=== PATIENT | female | born 1965 | race Caucasian/White ===

== ENCOUNTER 2019-12-03 08:04 | Outpatient (REF) | payer OTHER, SELFPAY ==
[2019-12-03 10:29] LABS: TSH reflex Free T4 4.83 mIU/mL (0.32-4.0); Vitamin D 25-OH Total 28.8 ng/mL (>30)
[2019-12-03 10:44] LABS: Alanine Aminotransferase 16 U/L (0-31); Albumin Level 4.2 g/dL (3.5-5.0); Alkaline Phosphatase 91 U/L (39-117); Anion Gap 12 (12-20); Aspartate Amino Transferase 17 U/L (5-31); Bilirubin Total < 0.2 mg/dL (0.0-1.0); Blood Urea Nitrogen 16 mg/dL (9-16); Calcium 8.8 mg/dL (8.4-10.2); Carbon Dioxide 26 mmol/L (22-29); Chloride 104 mmol/L (96-108); Cholesterol 276 mg/dL; Estimated Glomerular Filt Rate > 60; Glucose Random 106 mg/dL (60-115); HDL Cholesterol 48 mg/dL; LDL Cholesterol Calculated 206 mg/dl; Potassium 4.6 mmol/l (3.3-5.1); Sodium 137 mmol/L (135-145); Total Protein 7.7 g/dL (6.5-8.0); Triglycerides 113 mg/dL
[2019-12-03 10:52] LABS: Creatinine Urine 55.33 mg/dL
[2019-12-03 11:26] LABS: Free T4 (Free Thyroxine) 1.11 ng/dL (0.71-1.85)
== END 2019-12-03 08:05 | disposition home or self-care (01) ==
LOC: HO.LAB 08:04
PROVIDERS: PCP Internal Medicine; Visit Provider Internal Medicine
DX: E11.69 Type 2 diabetes mellitus with other specified complication (principal); E78.00 Pure hypercholesterolemia, unspecified; E55.9 Vitamin D deficiency, unspecified; E03.9 Hypothyroidism, unspecified
CPT/HCPCS: 80053; 80061; 82043; 82306; 84439; 84443

== ENCOUNTER 2019-12-15 07:39 | Outpatient (REF) | payer OTHER, SELFPAY ==
--- NOTE | 2019-12-15 08:00 | XR_ITS ---
EXAMINATION: XR RIBS, RIGHT CLINICAL INFORMATION: Pleurodynia. COMPARISON: None TECHNIQUE: 3 views of the right ribs were obtained. FINDINGS: Left convex thoracic scoliosis is noted. No displaced rib fractures are seen. No acute osseous abnormality is demonstrated. XR/XR ribs RT 2V IMPRESSION: No displaced rib fractures are seen. No focal findings.
[2019-12-15 08:37] LABS: Alanine Aminotransferase 16 U/L (0-31); Albumin Level 4.2 g/dL (3.5-5.0); Alkaline Phosphatase 94 U/L (39-117); Anion Gap 13 (12-20); Aspartate Amino Transferase 19 U/L (5-31); Bilirubin Total 0.6 mg/dL (0.0-1.0); Blood Urea Nitrogen 17 mg/dL (9-16); Calcium 8.7 mg/dL (8.4-10.2); Carbon Dioxide 27 mmol/L (22-29); Chloride 102 mmol/L (96-108); Cholesterol 197 mg/dL; Estimated Glomerular Filt Rate > 60; Glucose Fasting 120 mg/dL (60-99); HDL Cholesterol 45 mg/dL; LDL Cholesterol Calculated 130 mg/dl; Potassium 4.6 mmol/l (3.3-5.1); Sodium 137 mmol/L (135-145); Total Protein 7.5 g/dL (6.5-8.0); Triglycerides 111 mg/dL
[2019-12-15 08:58] LABS: TSH reflex Free T4 7.03 mIU/mL (0.32-4.0)
== END 2019-12-15 07:40 | disposition home or self-care (01) ==
LOC: HO.LAB 07:39
PROVIDERS: Visit Provider Internal Medicine
DX: R07.81 Pleurodynia (principal); E03.9 Hypothyroidism, unspecified; E78.2 Mixed hyperlipidemia; E11.9 Type 2 diabetes mellitus without complications
CPT/HCPCS: 71100; 80053; 80061; 84439; 84443

== ENCOUNTER 2020-01-02 10:11 | Outpatient (REF) | payer OTHER, SELFPAY | END 2020-01-02 10:12 | disposition home or self-care (01) | LOC: HO.LAB 10:11 | PROVIDERS: PCP Internal Medicine; Visit Provider Internal Medicine | DX: Z20.828 Contact with and (suspected) exposure to other viral communicable diseases (principal) | CPT/HCPCS: C9803; U0003 ==

== ENCOUNTER 2020-01-14 09:36 | Outpatient (REF) | payer OTHER, SELFPAY | END 2020-01-14 09:37 | disposition home or self-care (01) | LOC: HO.LAB 09:36 | PROVIDERS: Visit Provider Internal Medicine | DX: Z20.828 Contact with and (suspected) exposure to other viral communicable diseases (principal) | CPT/HCPCS: C9803; U0003 ==

== ENCOUNTER 2020-07-22 14:49 | Outpatient (REF) | payer OTHER, SELFPAY ==
[2020-07-22 17:56] LABS: Alanine Aminotransferase 17 U/L (0-31); Albumin Level 4.2 g/dL (3.5-5.0); Alkaline Phosphatase 87 U/L (39-117); Anion Gap 12 (12-20); Aspartate Amino Transferase 20 U/L (5-31); Bilirubin Total 0.5 mg/dL (0.0-1.0); Blood Urea Nitrogen 13 mg/dL (9-16); Calcium 9.5 mg/dL (8.4-10.2); Carbon Dioxide 27 mmol/L (22-29); Chloride 104 mmol/L (96-108); Cholesterol 264 mg/dL; Estimated Glomerular Filt Rate > 60; Glucose Random 68 mg/dL (60-115); HDL Cholesterol 47 mg/dL; LDL Cholesterol Calculated 185 mg/dl; Potassium 4.3 mmol/L (3.3-5.1); Sodium 139 mmol/L (135-145); Total Protein 7.7 g/dL (6.5-8.0); Triglycerides 161 mg/dL
[2020-07-22 18:08] LABS: Creatinine Urine 44.38 mg/dL; Microalbum/Creatinine Ratio Ur 13.5 ug/mg cr
[2020-07-22 18:17] LABS: Free T4 (Free Thyroxine) 1.25 ng/dL (0.71-1.85); Thyroid Stimulating Hormone 3.61 uIU/mL (0.32-4.0); Vitamin D 25-OH Total 23.8 ng/mL (>30)
[2020-07-22 18:22] LABS: Vitamin B12 458 pg/mL (200-900)
[2020-07-23 18:07] LABS: LDL Cholesterol Direct 202 mg/dL (<100)
== END 2020-07-22 14:50 | disposition home or self-care (01) ==
LOC: HO.LAB 14:49
PROVIDERS: PCP Internal Medicine; Visit Provider Internal Medicine Endocrinology, Diabetes & Metabolism
DX: E11.40 Type 2 diabetes mellitus with diabetic neuropathy, unspecified (principal); Z79.84 Long term (current) use of oral hypoglycemic drugs; E03.9 Hypothyroidism, unspecified; E78.2 Mixed hyperlipidemia
CPT/HCPCS: 36415; 80053; 80061; 82043; 82306; 82607; 82947; 83721; 84439; 84443; 99212

== ENCOUNTER 2020-08-01 13:03 | Outpatient (REF) | payer OTHER, SELFPAY ==
[2020-08-01 15:22] LABS: Alanine Aminotransferase 19 U/L (0-31); Albumin Level 4.3 g/dL (3.5-5.0); Alkaline Phosphatase 102 U/L (39-117); Anion Gap 15 (12-20); Aspartate Amino Transferase 21 U/L (5-31); Bilirubin Total 0.3 mg/dL (0.0-1.0); Blood Urea Nitrogen 18 mg/dL (9-16); Calcium 9.5 mg/dL (8.4-10.2); Carbon Dioxide 26 mmol/L (22-29); Chloride 102 mmol/L (96-108); Cholesterol 150 mg/dL; Estimated Glomerular Filt Rate > 60; Glucose Fasting 169 mg/dL (60-99); HDL Cholesterol 44 mg/dL; LDL Cholesterol Calculated 86 mg/dl; Potassium 4.1 mmol/L (3.3-5.1); Sodium 139 mmol/L (135-145); Total Protein 7.9 g/dL (6.5-8.0); Triglycerides 104 mg/dL
[2020-08-01 15:43] LABS: Thyroid Stimulating Hormone 1.51 uIU/mL (0.32-4.0)
[2020-08-01 17:32] LABS: Creatinine Urine 58.98 mg/dL; Microalbum/Creatinine Ratio Ur 8.4 ug/mg cr
[2020-08-04 18:51] LABS: TS Negative Control Passed; TS Panel A 0; TS Panel B 0; TS Positive Control Passed; TSpotTB Negative (SeeBelow)
[2020-08-05 20:37] LABS: Vitamin D 25-OH, D2 <4 ng/mL; Vitamin D 25-OH, D3 26 ng/mL; Vitamin D 25-OH, Total 26 ng/mL (30-100)
== END 2020-08-01 13:04 | disposition home or self-care (01) ==
LOC: HO.LAB 13:03
PROVIDERS: PCP Internal Medicine; Visit Provider Internal Medicine
DX: Z01.84 Encounter for antibody response examination (principal); Z11.1 Encounter for screening for respiratory tuberculosis; E55.9 Vitamin D deficiency, unspecified; E03.9 Hypothyroidism, unspecified; E11.9 Type 2 diabetes mellitus without complications; E78.5 Hyperlipidemia, unspecified
CPT/HCPCS: 36415; 80053; 80061; 82043; 82306; 84443; 86481

== ENCOUNTER 2020-09-03 10:50 | Outpatient (REF) | payer OTHER, SELFPAY ==
--- NOTE | ~2020-09-03 | MM_ITS ---
EXAMINATION: MM SCREENING DIGITAL BREAST TOMOSYNTHESIS, BILATERAL CLINICAL INFORMATION: Screening. Asymptomatic. The lifetime risk of breast cancer based on the Tyrer-Cuzick Model is 7%. COMPARISON: Mammography: 04/23/2019, 04/17/2018, 04/11/2017 TECHNIQUE: Digital breast tomosynthesis is performed in both the craniocaudal and mediolateral oblique views along with computer-aided detection (CAD). Synthesized 2D images are generated from the tomosynthesis. FINDINGS: There are scattered areas of fibroglandular density (ACR BI-RADS breast composition Category b). There are no significant masses, abnormal calcifications, or other abnormalities. Parenchymal pattern is similar to prior exams. No developing density. There is biopsy clip marker again seen posterior lower inner right breast. There are benign bilateral benign bilateral round calcifications again seen. MM/MM tomosynthesis screening BI IMPRESSION: No mammographic evidence of malignancy. ASSESSMENT: BI-RADS 2: Benign RECOMMENDATION: Routine annual mammography screening. This patient's information was entered into a reminder system with a target due date for their next mammogram.
== END 2020-09-03 10:51 | disposition home or self-care (01) ==
LOC: HO.MAMMO 10:50
PROVIDERS: PCP Internal Medicine; Visit Provider Internal Medicine
DX: Z12.31 Encounter for screening mammogram for malignant neoplasm of breast (principal)
CPT/HCPCS: 77063; 77067

== ENCOUNTER 2021-01-24 07:54 | Outpatient (REF) | payer OTHER, SELFPAY ==
[2021-01-24 08:07] LABS: MANUAL DIFF FLAG NO
[2021-01-24 09:08] LABS: Basophils Percent Auto 0.2 % (0-2); Eosinophils Absolute Auto 0.1 X10*3/uL (0.0-0.4); Eosinophils Percent Auto 1.1 % (0-4); Hematocrit 39.8 % (37.0-47.0); Hemoglobin 12.6 g/dl (12.0-16.0); Imm Gran Abs Auto 0.02 X10*3/uL (0.00-0.03); Imm Gran Pct Auto 0.2 % (0.0-0.4); Lymphocytes Absolute Auto 3.7 X10*3/uL (1.2-4.9); Lymphocytes Percent Auto 38.4 % (20-40); Mean Corpuscular HGB Conc 31.7 g/dl (31.0-35.0); Mean Corpuscular Hemoglobin 27.5 pg (27.0-33.0); Mean Corpuscular Volume 86.9 fL (80.0-98.0); Mean Platelet Volume 11.4 fL (9.4-12.3); Monocytes Absolute Auto 0.6 X10*3/uL (0.1-1.2); Monocytes Percent Auto 6.5 % (2-11); Neutrophils Absolute Auto 5.1 x10*3/uL (2.0-8.3); Neutrophils Percent Auto 53.6 % (45-73); Platelet Count 346 X10*3/uL (160-400); Red Blood Count 4.58 X10*6/uL (4.20-5.50); Red Cell Distribution Width 12.7 % (11.0-16.0); White Blood Count 9.6 X10*3/uL (4.8-10.8)
[2021-01-24 09:33] LABS: Alanine Aminotransferase 15 U/L (0-31); Alkaline Phosphatase 93 U/L (39-117); Anion Gap 12 (12-20); Aspartate Amino Transferase 16 U/L (5-31); Bilirubin Total 0.2 mg/dL (0.0-1.0); Blood Urea Nitrogen 11 mg/dL (9-16); Calcium 9.3 mg/dL (8.4-10.2); Carbon Dioxide 26 mmol/L (22-29); Chloride 106 mmol/L (96-108); Estimated Glomerular Filt Rate > 60; Glucose Fasting 101 mg/dL (60-99); Potassium 4.8 mmol/L (3.3-5.1); Sodium 139 mmol/L (135-145); Total Protein 7.6 g/dL (6.5-8.0)
[2021-01-24 09:41] LABS: Creatinine Urine 237.47 mg/dL; Microalbum/Creatinine Ratio Ur 15.1 ug/mg cr
[2021-01-24 09:55] LABS: TSH reflex Free T4 1.95 uIU/mL (0.32-4.0)
== END 2021-01-24 07:55 | disposition home or self-care (01) ==
LOC: HO.LAB 07:54
PROVIDERS: PCP Internal Medicine; Visit Provider Nurse Practitioner Family
DX: E11.9 Type 2 diabetes mellitus without complications (principal); E03.9 Hypothyroidism, unspecified
CPT/HCPCS: 36415; 80053; 82043; 84443; 85025

== ENCOUNTER 2021-06-06 07:16 | Outpatient (REF) | payer OTHER, SELFPAY ==
[2021-06-06 08:33] LABS: Creatinine Urine 140.08 mg/dL; Microalbum/Creatinine Ratio Ur 5.7 ug/mg cr
[2021-06-06 08:37] LABS: Alanine Aminotransferase 22 U/L (0-31); Albumin Level 4.1 g/dL (3.5-5.0); Alkaline Phosphatase 95 U/L (39-117); Anion Gap 11 (12-20); Aspartate Amino Transferase 19 U/L (5-31); Bilirubin Total 0.5 mg/dL (0.0-1.0); Blood Urea Nitrogen 12 mg/dL (9-16); Calcium 9.3 mg/dL (8.4-10.2); Carbon Dioxide 29 mmol/L (22-29); Chloride 103 mmol/L (96-108); Cholesterol 278 mg/dL; Estimated Glomerular Filt Rate > 60; Glucose Fasting 114 mg/dL (60-99); HDL Cholesterol 41 mg/dL; LDL Cholesterol Calculated 206 mg/dl; Potassium 4.7 mmol/L (3.3-5.1); Sodium 138 mmol/L (135-145); Total Protein 7.7 g/dL (6.5-8.0); Triglycerides 156 mg/dL
[2021-06-06 08:58] LABS: Thyroid Stimulating Hormone 1.56 uIU/mL (0.32-4.0)
[2021-06-10 14:56] LABS: Vitamin D 25-OH, D2 <4 ng/mL; Vitamin D 25-OH, D3 22 ng/mL; Vitamin D 25-OH, Total 22 ng/mL (30-100)
== END 2021-06-06 07:17 | disposition home or self-care (01) ==
LOC: HO.LAB 07:16
PROVIDERS: PCP Internal Medicine; Visit Provider Internal Medicine
DX: E11.9 Type 2 diabetes mellitus without complications (principal); E78.5 Hyperlipidemia, unspecified; E55.9 Vitamin D deficiency, unspecified; E03.9 Hypothyroidism, unspecified
CPT/HCPCS: 36415; 80053; 80061; 82043; 82306; 84443

== ENCOUNTER 2021-09-07 12:12 | Outpatient (REF) | payer OTHER, SELFPAY ==
--- NOTE | ~2021-09-07 | MM_ITS ---
EXAMINATION: MM SCREENING DIGITAL BREAST TOMOSYNTHESIS, BILATERAL CLINICAL INFORMATION: Screening. Asymptomatic. The lifetime risk of breast cancer based on the Tyrer-Cuzick Model is 6%. COMPARISON: Mammography: 09/03/2020, 04/23/2019, 04/17/2018 TECHNIQUE: Digital breast tomosynthesis is performed in both the craniocaudal and mediolateral oblique views along with computer-aided detection (CAD). Synthesized 2D images are generated from the tomosynthesis. FINDINGS: There are scattered areas of fibroglandular density (ACR BI-RADS breast composition Category b). There are no significant masses, abnormal calcifications, or other abnormalities. Parenchymal pattern is similar to prior studies. No interval developing density or architectural abnormality. Scattered benign round and coarse and some dermal calcifications again seen. There is a biopsy clip marker again noted posterior lower inner right breast. MM/MM tomosynthesis screening BI IMPRESSION: No mammographic evidence of malignancy. ASSESSMENT: BI-RADS 2: Benign RECOMMENDATION: Routine annual mammography screening. This patient's information was entered into a reminder system with a target due date for their next mammogram.
== END 2021-09-07 12:13 | disposition home or self-care (01) ==
LOC: HO.MAMMO 12:12
PROVIDERS: PCP Internal Medicine; Visit Provider Internal Medicine
DX: Z12.31 Encounter for screening mammogram for malignant neoplasm of breast (principal)
CPT/HCPCS: 77063; 77067

== ENCOUNTER 2022-05-15 07:05 | Outpatient (REF) | payer OTHER, SELFPAY ==
[2022-05-15 07:17] LABS: MANUAL DIFF FLAG NO
[2022-05-15 08:22] LABS: Basophils Percent Auto 0.2 % (0-2); Eosinophils Absolute Auto 0.1 X10*3/uL (0.0-0.4); Eosinophils Percent Auto 0.6 % (0-4); Hematocrit 40.7 % (37.0-47.0); Imm Gran Abs Auto 0.04 X10*3/uL (0.00-0.03); Imm Gran Pct Auto 0.4 % (0.0-0.4); Lymphocytes Absolute Auto 3.5 X10*3/uL (1.2-4.9); Lymphocytes Percent Auto 33.2 % (20-40); Mean Corpuscular HGB Conc 31.9 g/dl (31.0-35.0); Mean Corpuscular Hemoglobin 27.1 pg (27.0-33.0); Mean Corpuscular Volume 84.8 fL (80.0-98.0); Mean Platelet Volume 10.9 fL (9.4-12.3); Monocytes Absolute Auto 0.7 X10*3/uL (0.1-1.2); Monocytes Percent Auto 6.5 % (2-11); Neutrophils Absolute Auto 6.2 x10*3/uL (2.0-8.3); Neutrophils Percent Auto 59.1 % (45-73); Platelet Count 359 X10*3/uL (160-400); White Blood Count 10.5 X10*3/uL (4.8-10.8)
[2022-05-15 08:50] LABS: Creatinine Urine 134.93 mg/dL; Microalbum/Creatinine Ratio Ur 14.8 ug/mg cr
[2022-05-15 09:05] LABS: Cholesterol 284 mg/dL; HDL Cholesterol 40 mg/dL; LDL Cholesterol Calculated 208 mg/dl; Triglycerides 180 mg/dL
[2022-05-15 09:24] LABS: Thyroid Stimulating Hormone 3.15 uIU/mL (0.32-4.0); Vitamin D 25-OH Total 17.2 ng/mL (>30)
== END 2022-05-15 07:06 | disposition home or self-care (01) ==
LOC: HO.LAB 07:05
PROVIDERS: PCP Internal Medicine; Visit Provider Internal Medicine
DX: E03.9 Hypothyroidism, unspecified (principal); E78.5 Hyperlipidemia, unspecified; E11.9 Type 2 diabetes mellitus without complications; E55.9 Vitamin D deficiency, unspecified; E66.01 Morbid (severe) obesity due to excess calories
CPT/HCPCS: 36415; 80061; 82043; 82306; 84443; 85025

== ENCOUNTER → 2022-06-09 11:23 | Outpatient (BNVA) | payer OTHER, SELFPAY | PROVIDERS: PCP Internal Medicine; Visit Provider Internal Medicine Endocrinology, Diabetes & Metabolism | DX: E11.9 Type 2 diabetes mellitus without complications (principal) | CPT/HCPCS: 82947; 83036; 99212 ==

== ENCOUNTER 2022-09-08 08:04 | Outpatient (AMB) | payer OTHER, SELFPAY ==
--- NOTE | 2022-09-08 08:37 | A.OFFVIS_ITS ---
Intake Vital Signs 09/08/22 08:38 Height 4 ft 11.06 in Weight 172 lb 13.478 oz BMI 34.8 BP 118/66 Blood Pressure Location Lt brachial Position Sitting Pulse 78 Intake Visit Reasons: chest pain Intake Note: NPV Primary Care Pediatrician Required: Yes Primary Care Pediatrician Language: Teachers' Aide Name: dimitri [id number] Accompanied by: Self / Same As Patient Allergies Seasonal Allergies Allergy (Mild, Verified 09/08/22 08:40) Itchy Eyes Medication List - Last Reconciled 09/08/22 by Sg Walsh MD atorvastatin 80 mg PO DAILY 90 days blood sugar diagnostic As directed blood sugar diagnostic (FreeStyle Lite Strips) As directed blood-glucose meter (FreeStyle Lite Meter kit) As directed cholecalciferol (vitamin D3) 50 mcg PO DAILY 90 days clotrimazole-betamethasone 1-0.05 % 1 appl topical BID 2 weeks colloidal oatmeal (Aveeno Soothing Bath packet) 1 packet topical DAILY 8 days lancets As directed lancets (FreeStyle Lancets) As directed levothyroxine 125 mcg PO DAILY 90 days omeprazole 20 mg PO DAILY sitagliptin phos-metformin 50-1,000 mg ER 1 tab PO BID 30 days HPI HPI Comments History of Present Illness Details This is a cardiology consultation regarding chest pain. She states that few weeks back, she had an episode of chest pain. Then it seems that she went to [facility]. At that time, no evidence of ACS and she was discharged home. 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 Difficult to say if it is truly exertion or something nonspecific. Asked numerous times but still not able to clarify. Per ER note, high sensitivity troponins as well as cardiac BNP where well within normal limits. After that, it seems that she probably had a stress test as well but we do not have any results. She has not had any further symptoms. History of diabetes hypertension. It seems she was started on lisinopril for blood pressure but not in her list any more. Also blood pressure seems to be rather in the normal range now. Otherwise, no known coronary disease or myocardial infarction. [facility] Medical History (Updated 06/17/22 @ 13:12 by Gladis Aguilar MD) Diabetes mellitus Essential hypertension Hypothyroidism Mixed hyperlipidemia Morbid obesity due to excess calories Rash Rash due to allergy Rib pain Surgical History S/P DUSTIN-BSO (total abdominal hysterectomy and bilateral salpingo-oophorectomy) Family History Father Cirrhosis History of ETOH abuse Mother Hypertension Family/Other Breast cancer Social History (Updated 09/08/22 @ 08:42 by Tory Martel) Housing: Apartment Alcohol intake: never Patient Tobacco Use Status: Never used Tobacco e-Cigarette/Vaping Use: Never Used Second Hand Smoke Exposure: No service: No Current occupational status: unemployed Cognitive needs: No Hearing needs: No Vision needs: No Review of Systems Const Denies chills, Denies daytime sleepiness, Denies fatigue, Denies fever(s), Denies frequent falls, Denies night sweats, Denies snoring, Denies weakness, Denies weight gain and Denies weight loss Eyes Denies loss of vision ENT Denies dizziness and Denies hearing loss Card Denies chest pain, Denies chest pain with activity, Denies syncope, Denies rapid heart rate, Denies edema, Denies claudication, Denies leg edema, Denies lightheadedness, Denies palpitations, Denies dyspnea, Denies dyspnea on exertion and Denies orthopnea Resp Denies cough, Denies excessive phlegm production, Denies dyspnea, Denies dyspnea on exertion, Denies snoring and Denies wheezing GI Denies abdominal pain, Denies hematochezia, Denies change in bowel habits, Denies change in stool character, Denies heartburn, Denies nausea and Denies vomiting Denies hematuria, Denies urinary frequency and Denies dysuria Musc Denies arthralgias, Denies muscle weakness, Denies numbness and Denies tingling Skin/Breast Denies nail changes and Denies rash Neuro Denies Abnormal speech present, Denies dizziness, Denies syncope, Denies frequent falls, Denies loss of vision, Denies memory loss, Denies numbness, Denies tingling and Denies weakness Psych Denies depression and Denies memory loss Endo Denies fatigue and Denies palpitations Aller/Immun Denies wheezing Physical Exam Vital Signs: Last Vital Signs Pulse 78 09/08/22 08:38 BP 118/66 09/08/22 08:38 BMI result Body Mass Index 34.8 Const General: comfortable and no acute distress Orientation/consciousness: patient oriented x3 HEENT Other: Unremarkable Head: Yes normal to inspection Neck Neck: Yes normal visual inspection Chest Chest palpation & inspection: normal inspection of the chest Resp Auscultation: clear to auscultation bilaterally Cardio Palpation: normal PMI Heart sounds: S1 normal heart sound present, S2 normal heart sound present, no gallops, no murmurs and no rubs GI Palpation (GI): Soft to palpation Back/Spine/Pelvis Other: unremarkable Skin General skin exam: no rashes or lesions noted Neuro General: patient oriented x3 Speech: No Abnormal speech present Extrem General: Yes normal to inspection Psych Mental Status: mental status grossly normal Office Procedures EKG Details: EKG with sinus rhythm at 78/Min; cannot exclude old anteroseptal infarct but could be from body habitus; [place] [id number], Complete Assessment & Plan Assessment & Plan (1) Chest pain: Code(s): R07.9 - Chest pain, unspecified Plan History of diabetes, possible hypertension, chest pain. Needs assessment for coronary disease. Will need to get the stress test result from [facility]. Will get echocardiogram. Further plan after review of these. Orders: Orders CA echo transthoracic complete Today I25.10 - Atherosclerotic heart disease of [place] coronary artery without angina pectoris, R07.9 - Chest pain, unspecified Coding Level of Care Code New Pt Level 3 (81121) Diagnoses Chest pain R07.9 CPT Codes EKG - CPT: 40813-[id number], Complete ([id number])
[2022-09-08 08:38] VITALS: BP 118/66; PULSE 78; BMI 34.8
== END 2022-09-08 09:49 | disposition home or self-care (01) ==
PROVIDERS: Visit Provider Internal Medicine
DX: R07.9 Chest pain, unspecified (principal)
CPT/HCPCS: 93010; 99203

== ENCOUNTER → 2022-09-08 08:04 | Outpatient (BNVA) | payer OTHER, SELFPAY | PROVIDERS: Visit Provider Internal Medicine | DX: R07.9 Chest pain, unspecified (principal) | CPT/HCPCS: 93005; 99202 ==

== ENCOUNTER 2022-09-09 10:52 | Outpatient (REF) | payer OTHER, SELFPAY ==
--- NOTE | ~2022-09-09 | MM_ITS ---
EXAMINATION: MM SCREENING DIGITAL BREAST TOMOSYNTHESIS, BILATERAL CLINICAL INFORMATION: Screening. Asymptomatic. The lifetime risk of breast cancer based on the Tyrer-Cuzick Model is 10.5%. COMPARISON: Mammography: This study is compared with prior exams dating back to 2019. TECHNIQUE: Digital breast tomosynthesis is performed in both the craniocaudal and mediolateral oblique views along with computer-aided detection (CAD). Synthesized 2D images are generated from the tomosynthesis. FINDINGS: There are scattered areas of fibroglandular density (ACR BI-RADS breast composition Category b). There are no significant masses, abnormal calcifications, or other abnormalities. There is a tissue marker present in the right breast from prior benign percutaneous biopsy. MM/MM tomosynthesis screening BI IMPRESSION: No mammographic evidence of malignancy. ASSESSMENT: BI-RADS BI-RADS 2 - Benign Findings RECOMMENDATION: Routine annual mammography screening. 1 year F/U This examination should not preclude the clinical evaluation of a suspicious palpable abnormality. This patient's information was entered into a reminder system with a target due date for their next mammogram.
== END 2022-09-09 10:53 | disposition home or self-care (01) ==
LOC: HO.MAMMO 10:52
PROVIDERS: PCP Internal Medicine; Visit Provider Internal Medicine
DX: Z12.31 Encounter for screening mammogram for malignant neoplasm of breast (principal)
CPT/HCPCS: 77063; 77067

== ENCOUNTER → 2022-09-09 11:00 | Outpatient (BNV) | payer OTHER, SELFPAY | PROVIDERS: PCP Internal Medicine; Visit Provider Radiology Diagnostic Radiology | DX: Z12.31 Encounter for screening mammogram for malignant neoplasm of breast (principal) | CPT/HCPCS: 77063; 77067 ==

== ENCOUNTER → 2022-10-12 14:36 | Outpatient (REF) | payer OTHER, SELFPAY ==
--- NOTE | 2022-10-12 14:39 | CA_ITS ---
Transthoracic Echocardiogram Patient (Last, First, Middle): Vicky Madison, Gender: Female Date of : 1965 Age: 57 Procedure Date: 10/12/2022 Procedure Type: Transthoracic Echocardiogram Location: OP Height: 149.86 cm Weight: 74.39 kg BSA: 1.69 m2 Heart Rate: bpm BP: 124 / 60 mmHg Bottom Hoop Driver: Referring MD: Sg Walsh MD Symptoms: I25.10 - Atherosclerotic heart disease of [place] coronary artery without... Study Quality: Fair ECG Rhythm: Sinus Conclusions: - The left ventricular systolic function is normal. The calculated ejection fraction is 65% by biplane method. - No obvious valvular pathology seen on this study. Findings Left Ventricle Normal left ventricular cavity size. There is mildly increased left ventricular wall thickness. The left ventricular systolic function is normal. The calculated ejection fraction is 65% by biplane method. There is no evidence of regional wall motion abnormalities. Diastolic function is normal for age. Right Ventricle Normal right ventricular cavity size and systolic function. Atria Both atria are normal in size. Aortic Valve There is a normal trileaflet aortic valve. There is no aortic valve stenosis. There is no aortic valve regurgitation. Mitral Valve The mitral valve appears normal. There is no mitral valve regurgitation. There is no mitral valve stenosis. Pulmonic Valve The pulmonic valve is likely normal. Tricuspid Valve There is trace tricuspid valve regurgitation. There is no evidence of pulmonary hypertension. Great Vessels The asc aorta is normal in size. Venous The inferior vena cava is normal in size and collapses greater than 50% with inspiration. Pericardium/Pleural There is no evidence of pericardial effusion. Prior Study Comparison No prior study available for comparison. Recommendations, Care & Conclusions No obvious valvular pathology seen on this study. Measurements 2D Linear Measurements IVSd: 1.24 0.6-0.9/0.6-1.0 cm LVIDd: 4.24 3.9-5.3/4.2-5.9 cm LVIDd Index: 2.51 2.4-3.2/2.2-3.1 cm/m2 LVIDs: 2.77 2.0-3.6 cm LVPWd: 1.20 0.7-1.1 cm Ao Root: 2.60 2.1-3.5 cm LA Diam: 3.10 2.7-3.8/3.0-4.0 cm LAIDs Index: 1.83 1.5-2.3 cm/m2 LV Mass: 230.73 67-162/88-224 g LV Mass Index: 136.52 43-95/49-115 g/m2 LVOT Diam: 2.00 3.0+(-)1.3 cm 2D Systolic Function EF 4C: 68.80 >55% EF 2C: 62.00 >55% EF BiP: 64.80 >55% Mitral Valve MV Pk E: 0.54 MV PK A: 0.91 MV Decel Time: 125.00 E/A: 0.60 E'Lateral: 7.18 E'Medial: 6.64 E/E' Med: 8.10 E/E' Lat: 7.50 PHT: 37.00 MVA PHT: 5.95 Decel [place]: 4.28 Aortic Valve AoV Pk Jn: 1.23 AoV Mn Jn: 0.82 AoV VTI: 0.30 AoV Pk Grad: 6.00 Aov Mn Grad: 3.00 YANICK Cont.VTI: 2.23 LVOT LVOT Pk Jn: 0.86 LVOT Mn Jn: 0.63 LVOT VTI: 0.21 LVOT Pk Grad: 3.00 LVOT Mn Grad: 2.00 LVOT Diam: 2.00 LVOT Area: 3.14 Diastolic Function MV Pk E: 0.54 MV Pk A: 0.91 E/A: 0.60 E'Medial: 6.64 E/E' Med: 8.10 E' Laterial: 7.18 E/E' Lat: 7.50 Right Ventricle TAPSE (mm): 24.00 TVS' Jn: 11.00 Tricuspid Valve TR Pk Jn: 1.73 TR Pk Grad: 12.00 RA Press: 3.00 RVSP: 15.00 Great Vessels Aorta Ao Root-2D: 2.60 2.0-3.7 cm Ao Asc: 3.10 2.1-3.4 cm Pulmonary Valve PV Pk Jn: 1.02 Peak PV Grad: 4.00 Updated in Other Vendor System with Status of Final Sg Walsh MD electronically signed on 10/14/2022 8:21:16 AM with status of Final
== END ==
LOC: HO.CARD 14:36
PROVIDERS: Visit Provider Internal Medicine
DX: R07.9 Chest pain, unspecified (principal); I25.10 Atherosclerotic heart disease of native coronary artery without angina pectoris
CPT/HCPCS: 93306

== ENCOUNTER → 2022-10-12 14:39 | Outpatient (BNV) | payer OTHER, SELFPAY | PROVIDERS: Visit Provider Internal Medicine | DX: I25.10 Atherosclerotic heart disease of native coronary artery without angina pectoris (principal) | CPT/HCPCS: 93306 ==

== ENCOUNTER 2022-11-02 14:02 | Outpatient (REF) | payer OTHER, SELFPAY ==
--- NOTE | ~2022-11-02 | XR_ITS ---
EXAMINATION: XR LUMBAR SPINE CLINICAL INFORMATION: Lower back pain without sciatica. COMPARISON: 02/27/2016 TECHNIQUE: Lumbar spine, 3 views FINDINGS: Mild dextroscoliosis of the lumbar spine. Degenerative changes in the imaged lower thoracic spine. Facet arthritis in the lower lumbar spine. Multilevel lumbar spondylosis with advanced degenerative changes at L4-L5 including progressive loss of disc space height and hypertrophic change. XR/XR foot LT min 3V IMPRESSION: Interval progression of advanced degenerative changes at L4-L5.
--- NOTE | ~2022-11-02 | XR_ITS ---
EXAMINATION: XR LUMBAR SPINE CLINICAL INFORMATION: Lower back pain without sciatica. COMPARISON: 02/27/2016 TECHNIQUE: Lumbar spine, 3 views FINDINGS: Mild dextroscoliosis of the lumbar spine. Degenerative changes in the imaged lower thoracic spine. Facet arthritis in the lower lumbar spine. Multilevel lumbar spondylosis with advanced degenerative changes at L4-L5 including progressive loss of disc space height and hypertrophic change. XR/XR lumbar spine 2-3V IMPRESSION: Interval progression of advanced degenerative changes at L4-L5.
--- NOTE | ~2022-11-02 | XR_ITS ---
EXAMINATION: XR LUMBAR SPINE CLINICAL INFORMATION: Lower back pain without sciatica. COMPARISON: 02/27/2016 TECHNIQUE: Lumbar spine, 3 views FINDINGS: Mild dextroscoliosis of the lumbar spine. Degenerative changes in the imaged lower thoracic spine. Facet arthritis in the lower lumbar spine. Multilevel lumbar spondylosis with advanced degenerative changes at L4-L5 including progressive loss of disc space height and hypertrophic change. XR/XR hips NARDA min 3V IMPRESSION: Interval progression of advanced degenerative changes at L4-L5.
--- NOTE | ~2022-11-02 | XR_ITS ---
EXAMINATION: XR LUMBAR SPINE CLINICAL INFORMATION: Lower back pain without sciatica. COMPARISON: 02/27/2016 TECHNIQUE: Lumbar spine, 3 views FINDINGS: Mild dextroscoliosis of the lumbar spine. Degenerative changes in the imaged lower thoracic spine. Facet arthritis in the lower lumbar spine. Multilevel lumbar spondylosis with advanced degenerative changes at L4-L5 including progressive loss of disc space height and hypertrophic change. XR/XR foot RT min 3V IMPRESSION: Interval progression of advanced degenerative changes at L4-L5.
== END 2022-11-02 14:03 | disposition home or self-care (01) ==
LOC: HO.XRAY 14:02
PROVIDERS: PCP Internal Medicine; Visit Provider Internal Medicine
DX: M79.671 Pain in right foot (principal); M79.672 Pain in left foot; M54.50 Low back pain, unspecified; M25.551 Pain in right hip; M25.552 Pain in left hip
CPT/HCPCS: 72100; 73522; 73630

== ENCOUNTER 2022-11-13 07:06 | Outpatient (REF) | payer OTHER, SELFPAY ==
[2022-11-13 08:08] LABS: Alanine Aminotransferase 21 U/L (0-31); Albumin Level 4.2 g/dL (3.5-5.0); Alkaline Phosphatase 89 U/L (39-117); Anion Gap 16 (12-20); Aspartate Amino Transferase 20 U/L (5-31); Bilirubin Total 0.2 mg/dL (0.0-1.0); Blood Urea Nitrogen 15 mg/dL (9-16); Calcium 9.7 mg/dL (8.4-10.2); Carbon Dioxide 24 mmol/L (22-29); Chloride 103 mmol/L (96-108); Cholesterol 228 mg/dL (<200); Estimated Glomerular Filt Rate > 60; Glucose Fasting 96 mg/dL (60-99); HDL Cholesterol 44 mg/dL (>40); LDL Cholesterol Calculated 155 mg/dL (<100); Potassium 4.2 mmol/L (3.3-5.1); Sodium 139 mmol/L (135-145); Triglycerides 147 mg/dL (<150)
[2022-11-13 08:22] LABS: Thyroid Stimulating Hormone 2.49 uIU/mL (0.32-4.0); Vitamin D 25-OH Total 34.2 ng/mL (>30)
[2022-11-13 09:33] LABS: Creatinine Urine 72.75 mg/dL; Microalbum/Creatinine Ratio Ur 8.2 ug/mg cr (<30)
== END 2022-11-13 07:07 | disposition home or self-care (01) ==
LOC: HO.LAB 07:06
PROVIDERS: PCP Internal Medicine; Visit Provider Internal Medicine
DX: E55.9 Vitamin D deficiency, unspecified (principal); E78.2 Mixed hyperlipidemia; E11.9 Type 2 diabetes mellitus without complications; E03.9 Hypothyroidism, unspecified
CPT/HCPCS: 36415; 80053; 80061; 82043; 82306; 82570; 84443

== ENCOUNTER 2022-12-14 10:55 | Outpatient (AMB) | payer OTHER, SELFPAY ==
--- NOTE | 2022-12-14 10:59 | A.OFFVIS_ITS ---
Intake Vital Signs 12/14/22 11:16 Height 4 ft 6 in Weight 167 lb 4 oz BMI 40.3 BP 118/68 Blood Pressure Location Lt brachial Position Sitting Pulse 72 Pulse Source Pulse Oximeter Pulse Oximetry (%) 97 Oxygen Delivery Method Room Air Intake Visit Reasons: LOW BACK PAIN/LVM Intake Note: Pain today 09/23. Credit Union Teller Required: Yes Credit Union Teller Language: Board Certified Arts Therapist Name: Luis Manuel #[id number] Accompanied by: Self / Same As Patient Allergies Seasonal Allergies Allergy (Mild, Verified 12/14/22 11:09) Itchy Eyes No Known Drug Allergies Allergy (Unknown, Verified 12/14/22 11:09) Unknown HPI LOW BACK PAIN/LVM HPI Details Patient is a pleasant 57 years old Cypriot speaking female presents today for initial evaluation of chronic low back pain that has been worsening over the past 2 months. Denies any recent trauma, injury or falls. She attributes her chronic back pain to advanced osteoarthritis in her lower spine. Today she presents in significant distress, tearful and crying with minimal back examination. Significant low back pain provoked with standing, right side lateral bending, walking, standing on her toes or heels. On exam she has positive SLR testing that reproduces 10/10 right lower back pain with shooting and radiating pain into her right lower leg posteriorly and anteriorly. No pain increase with coughing or sneezing. Reports weakness with prolonged walking, cannot bend down or flex forward due to pain, numbness, and tingling in her anterior carrion and dorsal right foot. She has tried to manage her symptoms with Tylenol, NSAIDs and heat therapy without relief. Denies previous spine surgery. Patient reports previous back injections with Dr. Waldron in 2019 with good results. She has not followed up for potential RFA since then. Denies any fever, weight loss, abdominal or groin pain, bladder or bowel dysfunction or saddle anesthesia. Past Procedures: 03/20/2019: Bilateral Diagnostic L3-L4-L 5 MBB-70-80% pain relief PRIOR [place] 03/26/2019: BILATERAL L3/L4/L5 DIAGNOSTIC MEDIAL BRANCH BLOCKS WITH FLUOROSCOPY 03/20/19 Vicky presents today for a follow up visit. I initially saw her for axial lower back pain. This has been ongoing for over 5 years. She denies any trauma or surgical history to her lower back. She describes an aching pain across her lower. She denies any radiating pain down extremities. She denies any weakness, fever, or bowel/bladder dysfunction. Currently she utilizes ibuprofen and Naprosyn with some benefit. She has apparently tried physical therapy however could not tolerate it. She was trialed on gabapentin at 1 point however stopped due to lack of benefit. 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 She has been referred to Genetics Department at [facility] by Dr. Jose. She underwent bilateral diagnostic medial branch blocks on L3, L4, and L5 about 1 week ago. She reports about 70-80% pain relief of her lower back, which is ongoing today. She is very pleased with results. Location Lower back radiates to right lower leg anteriorly and posteriorly Duration 10 + years Characteristics of symptom or complaint Aching, shooting, stabbing, radiating, numbness, tinglinng Aggravating or associated factors Flexing forward, bending down, walking, movements, cold weather Relieving factors Acetaminophen 500mg, tried Ibuprofen and Naprosyn, hot shower, heat therapy Treatment Diagnostic lumbar medial branch blocks 70-80% pain relief FOR[facility]LY [facility], [facility] Medical History Hypothyroidism Morbid obesity due to excess calories Essential hypertension Rash due to allergy Rash Rib pain Mixed hyperlipidemia Hypothyroidism Diabetes mellitus Surgical History S/P DUSTIN-BSO (total abdominal hysterectomy and bilateral salpingo-oophorectomy) Family History Father Cirrhosis History of ETOH abuse Mother Hypertension Family/Other Breast cancer Social History Housing: Apartment Alcohol intake: never Patient Tobacco Use Status: Never used Tobacco e-Cigarette/Vaping Use: Never Used Second Hand Smoke Exposure: No service: No Current occupational status: unemployed Cognitive needs: No Hearing needs: No Vision needs: No Review of Systems Const All systems reviewed & are unremarkable except as noted in HPI and below Physical Exam Vital Signs: Last Vital Signs Pulse 72 12/14/22 11:16 BP 118/68 12/14/22 11:16 Pulse Ox 97 12/14/22 11:16 Oxygen Delivery Method Room Air 12/14/22 11:16 BMI result Body Mass Index 40.3 General: Appears afebrile. Alert and oriented. Mood and affect appropriate. Follows and participates in conversation appropriately. Respiratory effort is unlabored. No cough. Able to transition from sit to stand unassisted. Back/Spine/Pelvis Other: Patient is able to walk and stand on heels and tip toes with moderate difficulty on the right due to pain otherwise demonstrating good motor tone. No limping. Can flex forward to 60-70 degrees and extend to 5-10 degrees before experiencing lumbar pain. Demonstrates 5/5 left and 4/5 right strength of quadriceps bilaterally as well as flexion/dorsiflexion of bilateral feet against resistance. 2+ pedal pulses bilaterally. Seated straight leg rise with dorsiflexion positive on the right. +2 patellar and +1 achilles reflexes bilaterally. Facet loading test positive bilaterally. Yolanda sign, Chase?s, Pelvic compression tests are positive bilaterally, worse the right. No groin pain with I/E hip rotations. Valsalva maneuver negative. Cervical Spine: cervical ROM normal, cervical muscular tenderness and No Cervical spine tenderness Thoracic/Lumbar Spine: thoracic and lumbar spine normal to inspection, No Thoracic/lumbar spine scar(s), Lasegue's sign positive on the right and localized, paraspinal muscle tenderness, No thoracic spinal tenderness and lumbar spinal tenderness at L4 and at L5 Pelvis: buttock tenderness on the right Sacroiliac joints: bilaterally tender to palpation Results Reviewed Results Reviewed: XR LUMBAR SPINE 11/02/22 CLINICAL INFORMATION: Lower back pain without sciatica. COMPARISON: 02/27/2016 TECHNIQUE: Lumbar spine, 3 views FINDINGS: Mild dextroscoliosis of the lumbar spine. Degenerative changes in the imaged lower thoracic spine. Facet arthritis in the lower lumbar spine. Multilevel lumbar spondylosis with advanced degenerative changes at L4-L5 including progressive loss of disc space height and hypertrophic change. IMPRESSION: Interval progression of advanced degenerative changes at L4-L5. Assessment & Plan Assessment & Plan (1) Low back pain: Code(s): M54.50 - Low back pain, unspecified Qualifiers: Back pain laterality: unspecified Chronicity: unspecified Sciatica presence: without sciatica Qualified Code(s): M54.50 - Low back pain, unspecified (2) Lumbar radiculopathy: Code(s): M54.16 - Radiculopathy, lumbar region (3) Lumbar degenerative disc disease: Code(s): M51.36 - Other intervertebral disc degeneration, lumbar region (4) Sacroiliac joint pain: Code(s): M53.3 - Sacrococcygeal disorders, not elsewhere classified Plan MRI of the lumbar spine to assess for neural integrity, compression and disc herniation. Patient will return to the clinic to discuss results of the MRI findings when it is done and consider interventional therapy vs Neurosurgical evaluation as indicated. Patient presents with facet-mediated, discogenic, SIJ and radicular pain components. She had good results with previous diagnostic lumbar medial branch blocks in 2019 providing her 70-80% pain relief. Scripts provided for Meloxicam and lidocaine patches, side effects and precautions reviewed. Patient is aware to call if pain worsens or if she develops any red flag symptoms to seek emergency care. Patient denies any cauda equina syndrome symptoms at this time. All questions and concerns have been answered and patient agreed with the plan. Follow up for MRI results and sooner as needed. Orders: Orders MR lumbar spine wo con Today M51.36 - Other intervertebral disc degeneration, lumbar region, M54.16 - Radiculopathy, lumbar region, M54.50 - Low back pain, unspecified Medications: New meloxicam Take it with food and full glass of water 7.5 mg PO DAILY PRN 30 tabs 0RF pain E66.01 - Morbid (severe) obesity due to excess calories, M54.16 - Radiculopathy, lumbar region, M54.50 - Low back pain, unspecified, Z68.41 - Body mass index [BMI] 40.0-44.9, adult lidocaine 5% 1 patch topical DAILY 30 ea 0RF pain M51.36 - Other intervertebral disc degeneration, lumbar region, M54.50 - Low back pain, unspecified Coding Level of Care Code New Pt Level 4 (65104) Diagnoses Low back pain without sciatica, unspecified back pain laterality, unspecified chronicity M54.50 Back pain laterality: unspecified Chronicity: unspecified Sciatica presence: without sciatica Lumbar radiculopathy M54.16 Lumbar degenerative disc disease M51.36 Sacroiliac joint pain M53.3
[2022-12-14 11:16] VITALS: BP 118/68; PULSE 72; O2SAT 97; BMI 40.3
== END 2022-12-14 11:53 | disposition home or self-care (01) ==
PROVIDERS: PCP Internal Medicine; Visit Provider Nurse Practitioner Family
DX: M54.50 Low back pain, unspecified (principal); M54.16 Radiculopathy, lumbar region; M51.36 Other intervertebral disc degeneration, lumbar region; M53.3 Sacrococcygeal disorders, not elsewhere classified
CPT/HCPCS: 99204

== ENCOUNTER → 2022-12-14 10:55 | Outpatient (BNVA) | payer OTHER, SELFPAY | PROVIDERS: PCP Internal Medicine; Visit Provider Nurse Practitioner Family | DX: M54.50 Low back pain, unspecified (principal); M54.16 Radiculopathy, lumbar region; M51.36 Other intervertebral disc degeneration, lumbar region; M53.3 Sacrococcygeal disorders, not elsewhere classified | CPT/HCPCS: 99202 ==

== ENCOUNTER 2023-03-07 16:43 | Outpatient (REF) | payer OTHER, SELFPAY ==
--- NOTE | ~2023-03-07 | MR_ITS ---
EXAMINATION: MR LUMBAR SPINE WITHOUT CONTRAST CLINICAL INFORMATION: Low back pain, intervertebral disc degeneration COMPARISON: Lumbar radiographs 11/02/2022 TECHNIQUE: MRI of the lumbar spine was obtained using routine sequences without the administration of intravenous contrast. FINDINGS: This examination assumes the presence of 5 lumbar type vertebral bodies. For the purposes of this examination, the L5-S1 intervertebral disc space is visualized on axial series 5 image 28. Mild straightening of the normal lumbar lordosis. Retrolisthesis of L5-S1. There is mild levocurvature of the lower lumbar spine and dextrocurvature of the upper lumbar spine. Lumbar vertebral body heights are maintained. Mild degenerative endplate edema at L4-L5. The conus medullaris and cauda equina nerve roots are unremarkable; the conus terminates at the level of L1. L1-L2: Trace disc bulge without significant spinal canal stenosis. The neural foramen are patent. L2-L3: Disc bulge and facet arthropathy. The spinal canal and neural foramen are not significantly narrowed. L3-L4: Disc bulge and facet arthropathy. The spinal canal is patent. Mild narrowing of the neural foramen. L4-L5: Eccentric right disc bulge and osteophytic ridging. Mild facet arthropathy with redundancy of ligamentum flavum. The spinal canal is not significantly narrowed. There is mild narrowing of the right greater than left neural foramen. L5-S1: Disc bulge with left foraminal disc protrusion. Facet arthropathy ligamentum flavum redundancy. The spinal canal is patent. The right neural foramen is not significantly narrowed. There is moderate left neural foraminal stenosis with abutment of the exiting left L5 nerve root. MR/MR lumbar spine wo con IMPRESSION: Left foraminal disc protrusion at L5-S1 with moderate left neural foraminal stenosis and exiting nerve root impingement. Additional mild degenerative changes of the lumbar spine as described above. No significant spinal canal stenosis.
[2023-03-07 16:58] LABS: MANUAL DIFF FLAG NO
[2023-03-07 18:12] LABS: Basophils Percent Auto 0.2 % (0-2); Eosinophils Absolute Auto 0.1 X10*3/uL (0.0-0.4); Eosinophils Percent Auto 0.5 % (0-4); Estimated Average Glucose 131 mg/dL; Hematocrit 41.8 % (37.0-47.0); Hemoglobin 13.4 g/dl (12.0-16.0); Hemoglobin A1c % 6.2 % (<6.0); Imm Gran Abs Auto 0.04 X10*3/uL (0.00-0.03); Imm Gran Pct Auto 0.3 % (0.0-0.4); Lymphocytes Absolute Auto 3.7 X10*3/uL (1.2-4.9); Lymphocytes Percent Auto 27.4 % (20-40); Mean Corpuscular HGB Conc 32.1 g/dl (31.0-35.0); Mean Corpuscular Hemoglobin 26.2 pg (27.0-33.0); Mean Corpuscular Volume 81.6 fL (80.0-98.0); Mean Platelet Volume 11.7 fL (9.4-12.3); Monocytes Absolute Auto 0.8 X10*3/uL (0.1-1.2); Monocytes Percent Auto 5.7 % (2-11); Neutrophils Absolute Auto 8.8 x10*3/uL (2.0-8.3); Neutrophils Percent Auto 65.9 % (45-73); Platelet Count 344 X10*3/uL (160-400); Red Blood Count 5.12 X10*6/uL (4.20-5.50); White Blood Count 13.4 X10*3/uL (4.8-10.8)
[2023-03-07 18:27] LABS: Appearance Urine Clear; Color Urine Yellow; Glucose Urine UA Negative (Negative); Leukocyte Esterase Urine Negative (Negative); Nitrite Urine Negative (Negative); Specific Gravity - Urine 1.025 (1.005-1.025); Urine Blood Negative (Negative); Urine Ketones Negative (Negative); Urine Protein Negative (Neg-Trace)
[2023-03-07 18:52] LABS: Creatinine Urine 151.99 mg/dL; Microalbum/Creatinine Ratio Ur 7.2 ug/mg cr (<30)
[2023-03-07 18:59] LABS: Alanine Aminotransferase 20 U/L (0-31); Alkaline Phosphatase 97 U/L (39-117); Anion Gap 11 (12-20); Aspartate Amino Transferase 15 U/L (5-31); Bilirubin Total 0.2 mg/dL (0.0-1.0); Blood Urea Nitrogen 14 mg/dL (9-16); Calcium 9.4 mg/dL (8.4-10.2); Carbon Dioxide 27 mmol/L (22-29); Chloride 103 mmol/L (96-108); Cholesterol 236 mg/dL (<200); Estimated Glomerular Filt Rate > 60; Glucose Fasting 129 mg/dL (60-99); HDL Cholesterol 40 mg/dL (>40); LDL Cholesterol Calculated 151 mg/dL (<100); Potassium 3.9 mmol/L (3.3-5.1); Sodium 137 mmol/L (135-145); Total Protein 7.9 g/dL (6.5-8.0); Triglycerides 226 mg/dL (<150)
[2023-03-07 19:13] LABS: Free T4 (Free Thyroxine) 1.45 ng/dL (0.71-1.85); Thyroid Stimulating Hormone 1.18 uIU/mL (0.32-4.0); Vitamin D 25-OH Total 23.7 ng/mL (>30)
== END 2023-03-07 16:44 | disposition home or self-care (01) ==
LOC: HO.MRI 16:43
PROVIDERS: Internal Medicine; PCP Internal Medicine; Visit Provider Nurse Practitioner Family
DX: M51.36 Other intervertebral disc degeneration, lumbar region (principal); M54.50 Low back pain, unspecified; M54.16 Radiculopathy, lumbar region; E78.00 Pure hypercholesterolemia, unspecified; E03.9 Hypothyroidism, unspecified; R30.0 Dysuria; I10 Essential (primary) hypertension; E55.9 Vitamin D deficiency, unspecified; E11.9 Type 2 diabetes mellitus without complications
CPT/HCPCS: 36415; 72148; 80053; 80061; 81003; 82043; 82306; 82570; 83036; 84439; 84443; 85025

== ENCOUNTER 2023-05-18 14:00 | Outpatient (AMB) | payer OTHER, SELFPAY ==
[2023-05-18 15:00] VITALS: BP 130/78; BMI 38.6
--- NOTE | 2023-05-18 15:00 | A.OFFPC_ITS ---
Vital Signs 05/18/23 15:00 Height 4 ft 6 in Weight 160 lb BMI 38.6 BP 130/78 Blood Pressure Location Lt brachial Position Sitting Intake Visit Reasons: DM, hypothyroidism, GERD Intake Note: Patient here for a follow up DM, Hypothyroidism, GERD Finance Assistant Required: No Accompanied by: Self / Same As Patient Allergies Seasonal Allergies Allergy (Mild, Verified 05/18/23 15:32) Itchy Eyes No Known Drug Allergies Allergy (Unknown, Verified 05/18/23 15:32) Unknown Medication List - Last Reconciled 05/18/23 by Gladis Aguilar MD acetaminophen 500 mg PO Q6H PRN atorvastatin 80 mg PO DAILY 90 days blood sugar diagnostic As directed blood sugar diagnostic (FreeStyle Lite Strips) As directed blood-glucose meter (FreeStyle Lite Meter kit) As directed cholecalciferol (vitamin D3) 50 mcg PO DAILY 90 days lancets As directed lancets (FreeStyle Lancets) As directed levothyroxine 125 mcg PO DAILY 90 days lidocaine 5% 1 patch topical DAILY meloxicam 7.5 mg PO DAILY PRN sitagliptin phos-metformin 50-1,000 mg ER 1 tab PO BID 30 days Tobacco use date assessed: 05/18/23 Dental Screening Dental Screen Date: 05/18/23 Did you have a dental visit in the last 12 months?: No Did you have a dental problem in the last 6 months where you did not have access to dental care?: No Was dental information given to patient?: Patient has dentist HPI HPI Comments History of Present Illness Details This is a 58-year-old female with diabetes mellitus type 2, hypothyroidism, mixed hyperlipidemia and low vitamin-D that complains of heartburn associated with certain types of food. Was given omeprazole in the past with good results. Last A1c was within goal. TSH and lipid panel will be order and her LDL goal should be less than 70. On vitamin-D supplements for her low vitamin-D. Denies any chest pain or shortness of breath. Low back pain has improved by decreasing her weight. [facility] Medical History (Updated 05/18/23 @ 20:06 by Gladis Aguilar MD) Morbid obesity with BMI of 40.0-44.9, adult Hypothyroidism Morbid obesity due to excess calories Essential hypertension Rash due to allergy Rash Rib pain Mixed hyperlipidemia Hypothyroidism Diabetes mellitus Surgical History S/P UDSTIN-BSO (total abdominal hysterectomy and bilateral salpingo-oophorectomy) Family History Father Cirrhosis History of ETOH abuse Mother Hypertension Family/Other Breast cancer Social History Housing: Apartment Alcohol intake: never Patient Tobacco Use Status: Never used Tobacco e-Cigarette/Vaping Use: Never Used Second Hand Smoke Exposure: No service: No Current occupational status: unemployed Cognitive needs: No Hearing needs: No Vision needs: No Questionnaire PHQ-9 Over the last 2 weeks, how often have you been bothered by any of the following problems? 1. Little interest or pleasure in doing things: not at all 2. Feeling down, depressed, or hopeless: not at all 3. Trouble falling or staying asleep, or sleeping too much: not at all 4. Feeling tired or having little energy: not at all 5. Poor appetite or overeating: not at all 6. Feeling bad about yourself - or that you are a failure or have let yourself or your family down: not at all 7. Trouble concentrating on things, such as reading the newspaper or watching television: not at all 8. Moving or speaking so slowly that other people could have noticed. Or the opposite - being so fidgety or restless that you have been moving around a lot more than usual: not at all 9. Thoughts that you would be better off or of hurting yourself in some way: not at all Total score: 0 Depression Screening Interpretation: Negative Depression Screening Done: Yes 65462 - PHQ-9 Billing: Yes Source: Developed by Drs. Ricky Lopez, Acacia Wild, Matias Lnych and colleagues, with an educational judah from [employer]. Thrive Questionnaire Date Thrive assessed: 05/18/23 I am a: Patient What is your living situation today?: I have a steady place to live Within the past 12 months, did the food you bought not last and you didn't have the money to get more?: Never true Within the past 12 months, did you worry whether your food would run out before you got money to buy more?: Never true Do you have trouble paying for medicines?: No Do you have trouble getting transportation to medical appointments?: No Do you have trouble paying your heating and electricity bill?: No Do you have trouble taking care of your child, family member or friend?: No Do you have trouble with day-to-day activities such as bathing, preparing meals, shopping, managing finances, etc.?: No Are you currently unemployed and looking for a job?: No Are you interested in more education?: No Please select the resources that you would like help with: None Currently or been in a relationship where the following occur: no concerns reported THRIVE Score: 0 AUDIT C Alcohol Use Questionnaire (AUDIT-C) 1. How often do you have a drink containing alcohol?: Never Total Score: 0 Score Reviewed/Action Taken: No BETINA-7 AMB Questionnaire BETINA-7 Date BETINA - 7 assessed: 05/18/23 Feeling nervous, anxious, or on edge: 0 = Not at all Not being able to stop or control worryin = Not at all Worrying too much about different things: 0 = Not at all Trouble relaxin = Not at all Being so restless that it is hard to sit still: 0 = Not at all Becoming easily annoyed or irritable: 0 = Not at all Feeling afraid as if something awful might happen: 0 = Not at all Total BETINA-7 score (0-4 normal; 5-9 mild; 10-14 moderate; 15-21 severe): 0 Source: Developed by Drs. Ricky Lopez, Acacia Wild, Matias Lynch and colleagues, with an educational judah from [employer]. BETINA-7 Assessment Billing BETINA-7 Assessment Tool: BETINA-7 Assessment 99859 Review of Systems Const All systems reviewed & are unremarkable except as noted in HPI and below Eyes Reports no additional complaints, Denies change in vision and Denies other visual disturbances Card Denies chest pain at rest, Denies chest pain with activity, Denies edema, Denies irregular heart rhythm, Denies claudication, Denies dyspnea, Denies dyspnea on exertion, Denies orthopnea, Denies paroxysmal nocturnal dyspnea and Denies slow heart rate Resp Denies cough, Denies dyspnea and Denies dyspnea on exertion GI Denies abdominal pain, Denies change in bowel habits, Denies excessive flatus, Denies nausea and Denies vomiting Denies urinary incontinence, Denies urinary hesitancy and Denies urinary urgency Physical exam (Primary Care) Vital Signs: Last Vital Signs BP 130/78 05/18/23 15:00 BMI result Body Mass Index 38.6 Tobacco/Smoking Status: Tobacco use Status Tobacco use date assessed 05/18/23 05/18/23 15:07 Patient Tobacco Use Status Never used Tobacco 05/18/23 15:07 Tobacco use type 10/26/22 13:36 e-Cigarette/Vaping Use Never Used 05/18/23 15:07 PHQ-9: PHQ-9 Score PHQ-9: Total score 0 05/18/23 15:35 Depression Screening Interpretation: Negative Thrive Assessment: Date of Thrive Assessment Date Thrive assessed 05/18/23 05/18/23 15:07 Currently or been in a relationship where the following occur: no concerns reported Resp Effort & Inspection: normal respiratory effort Auscultation: clear to auscultation bilaterally Cardio Jugular venous distension: no JVD Rate: regular rate Rhythm: regular rhythm Heart sounds: S1 normal heart sound present and S2 normal heart sound present GI Inspection: Yes normal to inspection Palpation (GI): Soft to palpation and nontender Auscultation: normal bowel sounds Extrem General: Yes full ROM Assessment and Plan Assessment & Plan (1) Diabetes mellitus: Code(s): E11.9 - Type 2 diabetes mellitus without complications Qualifiers: Diabetes mellitus type: type 2 Diabetes mellitus 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 A1c goal is equal or less than 7% (2) Hypothyroidism: Code(s): E03.9 - Hypothyroidism, unspecified Qualifiers: Hypothyroidism type: acquired Qualified Code(s): E03.9 - Hypothyroidism, unspecified Plan: Continue levothyroxine. Monitor TSH. (3) Mixed hyperlipidemia: Code(s): E78.2 - Mixed hyperlipidemia Plan: Continue statins and fibrates. LDL goal is less than 70. (4) Chronic GERD: Code(s): K21.9 - Gastro-esophageal reflux disease without esophagitis Plan: Continue PPIs. (5) Hypovitaminosis D: Code(s): E55.9 - Vitamin D deficiency, unspecified Plan: Continue vitamin-D supplements. Orders: Orders Lipid Panel Today E78.5 - Hyperlipidemia, unspecified Vitamin D 25-OH Total Today E55.9 - Vitamin D deficiency, unspecified Comprehensive [place]. Panel Fast Today E11.9 - Type 2 diabetes mellitus without complications Thyroid Stimulating Hormone Today E03.9 - Hypothyroidism, unspecified Microalbumin, Random (w Creat) Today E11.9 - Type 2 diabetes mellitus without complications Medications: New omeprazole 20 mg PO DAILY 90 days 90 caps 1RF K21.9 - Gastro-esophageal reflux disease without esophagitis Coding Level of Care Code Est Pt Level 4 (97342) Diagnoses Type 2 diabetes mellitus without complication, without long-term current use of insulin E11.9 Diabetes mellitus type: type 2 Diabetes mellitus senior living insulin use: without senior living use Diabetes mellitus complication status: without complication Acquired hypothyroidism E03.9 Hypothyroidism type: acquired Mixed hyperlipidemia E78.2 Chronic GERD K21.9 Hypovitaminosis D E55.9 Additional Codes BETINA-7 Assessment Billing - BETINA-7 Assessment Tool: BETINA-7 Assessment 37521 ([id number]) Time Spent (min) 25
== END 2023-05-18 15:42 | disposition home or self-care (01) ==
PROVIDERS: PCP Internal Medicine; Visit Provider Internal Medicine
DX: E11.9 Type 2 diabetes mellitus without complications (principal); E03.9 Hypothyroidism, unspecified; E78.2 Mixed hyperlipidemia; K21.9 Gastro-esophageal reflux disease without esophagitis; E55.9 Vitamin D deficiency, unspecified
CPT/HCPCS: 99214

== ENCOUNTER 2023-06-11 07:22 | Outpatient (REF) | payer OTHER, SELFPAY ==
[2023-06-11 08:38] LABS: Alanine Aminotransferase 17 U/L (0-31); Albumin Level 3.9 g/dL (3.5-5.0); Alkaline Phosphatase 91 U/L (39-117); Anion Gap 10 (12-20); Aspartate Amino Transferase 15 U/L (5-31); Bilirubin Total 0.2 mg/dL (0.0-1.0); Blood Urea Nitrogen 13 mg/dL (9-16); Calcium 9.3 mg/dL (8.4-10.2); Carbon Dioxide 30 mmol/L (22-29); Chloride 103 mmol/L (96-108); Cholesterol 260 mg/dL (<200); Estimated Glomerular Filt Rate > 60; Glucose Fasting 106 mg/dL (60-99); HDL Cholesterol 41 mg/dL (>40); LDL Cholesterol Calculated 188 mg/dL (<100); Potassium 4.3 mmol/L (3.3-5.1); Sodium 139 mmol/L (135-145); Total Protein 7.8 g/dL (6.5-8.0); Triglycerides 159 mg/dL (<150)
[2023-06-11 08:57] LABS: Thyroid Stimulating Hormone 0.89 uIU/mL (0.32-4.0); Vitamin D 25-OH Total 23.7 ng/mL (>30)
[2023-06-11 09:21] LABS: Creatinine Urine 111.45 mg/dL; Microalbum/Creatinine Ratio Ur 4.4 ug/mg cr (<30)
== END 2023-06-11 07:23 | disposition home or self-care (01) ==
LOC: HO.LAB 07:22
PROVIDERS: PCP Internal Medicine; Visit Provider Internal Medicine
DX: E78.5 Hyperlipidemia, unspecified (principal); E55.9 Vitamin D deficiency, unspecified; E11.9 Type 2 diabetes mellitus without complications; E03.9 Hypothyroidism, unspecified
CPT/HCPCS: 36415; 80053; 80061; 82043; 82306; 82570; 84443

== ENCOUNTER 2023-10-10 13:19 | Outpatient (REF) | payer OTHER, SELFPAY ==
--- NOTE | ~2023-10-10 | MM_ITS ---
EXAMINATION: MM SCREENING DIGITAL BREAST TOMOSYNTHESIS, BILATERAL CLINICAL INFORMATION: Screening. Asymptomatic. COMPARISON: Mammography: Comparison is made with available priors TECHNIQUE: Digital breast tomosynthesis is performed in both the craniocaudal and mediolateral oblique views along with computer-aided detection (CAD). Synthesized 2D images are generated from the tomosynthesis. FINDINGS: There are scattered areas of fibroglandular density (ACR BI-RADS breast composition Category b). Right marker clip. There are no significant masses, abnormal calcifications, or other abnormalities. MM/MM tomosynthesis screening BI IMPRESSION: No mammographic evidence of malignancy. ASSESSMENT: BI-RADS BI-RADS 2 - Benign Findings RECOMMENDATION: Routine annual mammography screening. 1 year F/U This examination should not preclude the clinical evaluation of a suspicious palpable abnormality. This patient's information was entered into a reminder system with a target due date for their next mammogram. Electronically signed by: Zoe Norman DO 11/04/2023 12:23 PM EDT
== END 2023-10-10 13:20 | disposition home or self-care (01) ==
LOC: HO.MAMMO 13:19
PROVIDERS: PCP Internal Medicine; Visit Provider Internal Medicine
DX: Z12.31 Encounter for screening mammogram for malignant neoplasm of breast (principal)
CPT/HCPCS: 77063; 77067

== ENCOUNTER → 2023-10-10 14:15 | Outpatient (BNV) | payer OTHER, SELFPAY | PROVIDERS: PCP Internal Medicine; Visit Provider Internal Medicine | DX: Z12.31 Encounter for screening mammogram for malignant neoplasm of breast (principal) | CPT/HCPCS: 77063; 77067 ==

== ENCOUNTER 2024-05-23 16:48 | Outpatient (AMB) | payer OTHER, SELFPAY ==
[2024-05-23 17:00] VITALS: BP 140/74; PULSE 80; O2SAT 97; BMI 39.9
--- NOTE | 2024-05-23 17:00 | MHC.PC.OV ---
Vital Signs 05/23/24 17:00 Height 4 ft 6 in Weight 165 lb 9.6 oz BMI 39.9 BP 140/74 H Blood Pressure Location Lt brachial Position Sitting Pulse 80 Pulse Source Pulse Oximeter Temp Source Temporal Artery Scan Pulse Oximetry (%) 97 Oxygen Delivery Method Room Air Intake Visit Reasons: DM Shoe Sewing Machine Operator And Tender Required: Yes Shoe Sewing Machine Operator And Tender Language: Insurance Loss Assessor Name: Accompanied by: Spouse Allergies Seasonal Allergies Allergy (Mild, Verified 05/23/24 17:21) Itchy Eyes No Known Drug Allergies Allergy (Unknown, Verified 05/23/24 17:21) Unknown Medication List - Last Reconciled 05/23/24 by Gladis Aguilar MD acetaminophen 500 mg PO Q6H PRN atorvastatin 80 mg PO DAILY 90 days blood sugar diagnostic As directed blood sugar diagnostic (FreeStyle Lite Strips) As directed blood-glucose meter (FreeStyle Lite Meter kit) As directed cholecalciferol (vitamin D3) 50 mcg PO DAILY 90 days ezetimibe 10 mg PO DAILY 90 days lancets As directed lancets (FreeStyle Lancets) As directed levothyroxine 125 mcg PO DAILY 90 days omeprazole 20 mg PO DAILY 90 days sitagliptin phos-metformin 50-1,000 mg ER 1 tab PO BID 30 days Tobacco use date assessed: 05/23/24 Dental Screening Dental Screen Date: 05/23/24 Did you have a dental visit in the last 12 months?: Yes Did you have a dental problem in the last 6 months where you did not have access to dental care?: No Was dental information given to patient?: Patient has dentist HPI HPI Comments History of Present Illness Details The patient is a 59-year-old female presenting for medication refills and assessment of her medical conditions including Type 2 Diabetes Mellitus, Hyperlipidemia, Hypothyroidism, and Gastroesophageal Reflux Disease. She reports effective management of her diabetes, with a Hemoglobin A1c of 5.7%, but expresses a current inability to monitor her blood glucose due to a malfunctioning meter. Her hyperlipidemia is controlled with atorvastatin and ezetimibe, and she affirms her thyroid dose has been stable at 125 mcg of levothyroxine. In terms of blood pressure management, she does not mention specific medication, but comments on perceived slightly elevated pressures. She continues omeprazole for gastroesophageal reflux disease without noting recent exacerbations and manages her seasonal allergies without specific prescription medications. Regarding surgeries, she acknowledges the removal of cysts with no further surgical interventions and confirms being a non-smoker. Additionally, she queries vaccinations, disclosing a tetanus booster received in 2017, and is evaluated for potential need of a pneumonia vaccine due to her diabetes. [facility] Medical History Morbid obesity with BMI of 40.0-44.9, adult Hypothyroidism Morbid obesity due to excess calories Essential hypertension Rash due to allergy Rash Rib pain Mixed hyperlipidemia Hypothyroidism Diabetes mellitus Surgical History S/P DUSTIN-BSO (total abdominal hysterectomy and bilateral salpingo-oophorectomy) Family History Father Cirrhosis History of ETOH abuse Mother Hypertension Family/Other Breast cancer Social History Housing: Apartment Alcohol intake: never Patient Tobacco Use Status: Never used Tobacco e-Cigarette/Vaping Use: Never Used Second Hand Smoke Exposure: No service: No Current occupational status: unemployed Cognitive needs: No Hearing needs: No Vision needs: No Questionnaire Thrive Questionnaire Date Thrive assessed: 05/23/24 I am a: Patient What is your living situation today?: I have a steady place to live Within the past 12 months, did the food you bought not last and you didn't have the money to get more?: Never true Within the past 12 months, did you worry whether your food would run out before you got money to buy more?: Never true Do you have trouble paying for medicines?: No Do you have trouble getting transportation to medical appointments?: No Do you have trouble paying your heating and electricity bill?: No Do you have trouble taking care of your child, family member or friend?: No Do you have trouble with day-to-day activities such as bathing, preparing meals, shopping, managing finances, etc.?: No Are you currently unemployed and looking for a job?: No Are you interested in more education?: No Please select the resources that you would like help with: None Currently or been in a relationship where the following occur: No concerns reported THRIVE Score: 0 AUDIT C Alcohol Use Questionnaire (AUDIT-C) 1. How often do you have a drink containing alcohol?: Never 3. How often do you have six or more drinks on one occasion?: Never Total Score: 0 Score Reviewed/Action Taken: No BETINA-7 AMB Questionnaire BETINA-7 Date BETINA - 7 assessed: 05/18/23 Source: Developed by Drs. Ricky Lopez, Acacia Wild, Matias Lynch and colleagues, with an educational judah from [employer]. Review of Systems Const All systems reviewed & are unremarkable except as noted in HPI and below Card Denies chest pain at rest, Denies chest pain with activity, Denies edema, Denies irregular heart rhythm, Denies claudication, Denies dyspnea, Denies dyspnea on exertion, Denies orthopnea, Denies paroxysmal nocturnal dyspnea and Denies slow heart rate Resp Denies cough, Denies dyspnea and Denies dyspnea on exertion GI Denies abdominal pain, Denies change in bowel habits, Denies excessive flatus, Denies nausea and Denies vomiting Denies urinary incontinence, Denies urinary hesitancy and Denies urinary urgency Musc Denies atrophy, Denies deformity and Denies limited range of motion Skin/Breast Denies bleeding lesions, Denies changing lesions and Denies rash Physical exam (Primary Care) Vital Signs: Last Vital Signs Pulse 80 05/23/24 17:00 BP 140/74 H 05/23/24 17:00 Pulse Ox 97 05/23/24 17:00 Oxygen Delivery Method Room Air 05/23/24 17:00 BMI result Body Mass Index 39.9 BMI Assessment/Plan discussion: High BMI High, discussed plan: lifestyle, weight reduction, dietary and physical activity Tobacco/Smoking Status: Tobacco use Status Tobacco use date assessed 05/23/24 05/23/24 17:02 Patient Tobacco Use Status Never used Tobacco 05/23/24 17:02 Tobacco use type 10/26/22 13:36 e-Cigarette/Vaping Use Never Used 05/23/24 17:02 Thrive Assessment: Date of Thrive Assessment Date Thrive assessed 05/23/24 05/23/24 17:02 Currently or been in a relationship where the following occur: No concerns reported Resp Effort & Inspection: normal respiratory effort Auscultation: clear to auscultation bilaterally Cardio Jugular venous distension: no JVD Rate: regular rate Rhythm: regular rhythm Heart sounds: S1 normal heart sound present and S2 normal heart sound present Extrem General: Yes full ROM Results AMB Hemoglobin A1c AMB Hemoglobin A1c 5.7 % Last Edit by Kathy Rivers CMA on 05/23/24 17:16 Results Reviewed Results Reviewed: Laboratory Last Values Hgb A1c (Clinic) 5.7 % (4.0-6.0) 05/23/24 17:16 Coding Level of Care Code Est Pt Level 4 (50599) Complex EM visit Add On G2211 Diagnoses Acquired hypothyroidism E03.9 Hypothyroidism type: acquired Type 2 diabetes mellitus without complication, without long-term current use of insulin E11.9 Diabetes mellitus type: type 2 Diabetes mellitus correction insulin use: without keno terminal operator use Diabetes mellitus complication status: without complication Mixed hyperlipidemia E78.2 Chronic GERD K21.9 Time Spent (min) 24 Assessment & Plan Assessment & Plan (1) Hypothyroidism: Code(s): E03.9 - Hypothyroidism, unspecified Category: Medical Qualifiers: Hypothyroidism type: acquired Qualified Code(s): E03.9 - Hypothyroidism, unspecified (2) Diabetes mellitus: Code(s): E11.9 - Type 2 diabetes mellitus without complications Category: Medical Qualifiers: Diabetes mellitus type: type 2 Diabetes mellitus correction insulin use: without keno terminal operator use Diabetes mellitus complication status: without complication Qualified Code(s): E11.9 - Type 2 diabetes mellitus without complications (3) Mixed hyperlipidemia: Code(s): E78.2 - Mixed hyperlipidemia Category: Medical (4) Chronic GERD: Code(s): K21.9 - Gastro-esophageal reflux disease without esophagitis Category: Medical Plan I recommend ensuring functionality of her glucose monitoring device for continued home monitoring. Her Hyperlipidemia treatment with atorvastatin and ezetimibe is effective and should continue as prescribed. Her current blood pressure management needs further assessment in upcoming visits to consider adjustments if necessary. Maintain her Hypothyroidism management on the existing levothyroxine dose, and continue using omeprazole for reflux management. Vaccination status should be reviewed, particularly considering pneumococcal vaccination due to her diabetes. Laboratory evaluations should be completed in advance of her next follow-up in four months, where her overall medical condition and treatment efficacy will be reassessed.: Patient was informed and verbally consented to the use of an ambient scribe for clinic note documentation during this visit. I discussed with the patient the positive status of her diabetes management indicated by an A1c of 5.7% and emphasized the importance of regular blood sugar monitoring. It was noted that her glucose meter needs attention to ensure ongoing management efficacy. For her Hyperlipidemia and Gastroesophageal Reflux Disease, I verified adherence to current medication regimens. On vaccination and preventive care, we reviewed the timing and necessity of immunizations, especially the pneumococcal vaccine given her diabetes. Regarding hypothyroidism, she was stable on her current dose, and our discussion around maintaining medication adherently ensured suitable control. There's a plan for comprehensive lab testing soon and a forthcoming health review in four months to address her overarching wellness and any medication adjustments based on observed health dynamics. Orders: Orders AMB Hemoglobin A1c Today E11.9 - Type 2 diabetes mellitus without complications Vitamin D 25-OH Total Today E55.9 - Vitamin D deficiency, unspecified Comprehensive [place]. Panel Fast Today E11.9 - Type 2 diabetes mellitus without complications MM tomosynthesis screening BI Today Z12.31 - Encounter for screening mammogram for malignant neoplasm of breast Microalbumin, Random (w Creat) Today R80.9 - Proteinuria, unspecified Lipid Panel Today E78.5 - Hyperlipidemia, unspecified Thyroid Stimulating Hormone Today E03.9 - Hypothyroidism, unspecified Medications: Refilled blood-glucose meter (FreeStyle Lite Meter kit) As directed 1 ea 0RF E11.9 - Type 2 diabetes mellitus without complications Patient Instructions: - Continue your medications as prescribed. - Work on fixing your glucose monitoring device or replace it if necessary. - Monitor your blood sugar regularly as soon as the device is functional. - Schedule and attend the laboratory tests as planned. - Consider the benefits of pneumococcal vaccination to discuss in advance of your next appointment. - Follow up in four months for a comprehensive evaluation of your health and medication needs. - Ensure regular blood pressure checks to aid in your hypertensive management. - Notify me immediately if any new symptoms develop or if existing conditions worsen.
--- OUTSIDE RECORDS SUMMARY | 2024-05-23 17:52 | XMS_ITS | Clinical Summary ---
Author Organization [facility] Address [address] [place] [address] Care Team Providers Care Medical Administrative Name Role Phone Medina Hall NP Primary Care Provider [phone] Source Comments PLEASE NOTE, if this patient is a minor, it may be UNLAWFUL to discuss sensitive information that is contained in these records (such as FAMILY PLANNING, MENTAL HEALTH or SUBSTANCE ABUSE) with the minor patient's parent or other person without the patient's specific authorization.[facility] Allergies No known active allergies Medications hydrochlorothia zide (HYDRODIURIL) 12.5 mg tabletIndicatio ns:HTN (hypertension) Take 1 Tab by mouth once daily. 90 Tab 0 02/08/2013 Active simvastatin (ZOCOR) 20 mg tabletIndicatio ns:Dyslipidemia Take 1 Tab by mouth nightly at bedtime. 90 Tab 0 02/08/2013 Active lancetsIndicati ons:DM (diabetes mellitus) ([facility]) FSBS once daily 100 Each 10 02/08/2013 Active alcohol swabsIndication s:DM (diabetes mellitus) ([facility]) FSBS Once daily 90 Each 02/08/2013 Active blood sugar diagnostic (FREESTYLE TEST) stripsIndicatio ns:DM (diabetes mellitus) ([facility]) as needed for high blood sugar. 100 Each 10 02/08/2013 Active naproxen (EC NAPROSYN) 500 mg EC tabletIndicatio ns:Low back pain,Arthritis Take 1 Tab by mouth 2 (two) times daily with a meal. Swallow whole. Do not crush or chew. 60 Tab 2 02/08/2013 Active acetaminophen (TYLENOL 8 HOUR) 650 mg CR tabletIndicatio ns:Low back pain,Arthritis Take 1 Tab by mouth every 8 (eight) hours as needed for pain. 90 Tab 3 02/08/2013 Active celecoxib (CELEBREX) 200 mg capsuleIndicati ons:Arthritis Take 1 Cap by mouth 2 (two) times daily. 60 Cap 2 02/13/2013 Active aspirin-acetami nophen-caffeine (EXCEDRIN MIGRAINE) 250-250-65 mg per tabletIndicatio ns:Sinusitis Take 1 Tab by mouth every 6 (six) hours as needed for pain. 60 Tab 2 03/28/2013 Active fluticasone (FLONASE) 50 mcg/actuation nasal sprayIndication s:Sinusitis Place 1 [place] into the nostril(s) once daily. 16 g 2 03/28/2013 Active cetirizine (ZYRTEC) 5 mg tabletIndicatio ns:Sinusitis Take 1 Tab by mouth once daily. 30 Tab 2 03/28/2013 Active levothyroxine (SYNTHROID, LEVOTHROID) 150 mcg tabletIndicatio ns:Hypothyroid Take 1 tablet by mouth once daily. 30 tablet 2 10/11/2013 Active metFORMIN (GLUCOPHAGE) 500 mg tabletIndicatio ns:DM (diabetes mellitus) ([facility]) Take 1 Tab by mouth once daily with breakfast. 90 Tab 0 11/12/2013 Active Active Problems Problem Noted Date Diagnosed Date DM (diabetes mellitus) ([facility]) 02/08/2013 HTN (hypertension) 02/08/2013 Hypothyroid 02/08/2013 Dyslipidemia 02/08/2013 Low back pain 02/08/2013 Arthritis 02/08/2013 Preventive measure 02/08/2013 Resolved Problems Problem Noted Date Diagnosed Date Resolved Date Sinusitis 03/29/2013 10/03/2020 Immunizations Immunization Administration Dates Next Due INFLUENZA, SEASONAL, INJECTABLE 02/08/2013 Family History Medical History Relation Name Comments Mental illness Mother Relation Name Status Comments Mother Social History Tobacco Use Types Packs/Day Years Used Date Smoking Tobacco: Never Alcohol Use Standard Drinks/Week Comments No 0 (1 standard drink = 0.6 oz pur e alcohol) Comments No Sex and Gender Information Value Date Recorded Sex Assigned at Not on file Legal Sex Female 11:58 AM PST Gender Identity Not on file Sexual Orientation Not on file Last Filed Vital Signs Vital Sign Reading Time Taken Comments Blood Pressure 120/80 03/28/2013 2:15 PM EST Pulse 100 03/28/2013 2:15 PM EST Temperature 36.6 ??C (97.9 ??F) 03/28/2013 2:15 PM ES T Respiratory Rate 19 03/28/2013 2:15 PM EST Oxygen Saturation - - Inhaled Oxygen Concentration - - Weight 82.6 kg (182 lb) 03/28/2013 2:15 PM EST Height 152.4 cm (5') 03/28/2013 2:15 PM EST Body Mass Index 35.54 03/28/2013 2:15 PM EST Plan of Treatment Not on file Insurance [place] [employer] Member Subscriber Plan / Payer ( fective 2013-Present) Name:Gricelda Vicky Relation to Subscriber:Self Name:Vicky Madison Payer ID:[id number] Group ID:Not on file Type:Indemnity Address: [address] [employer] Care Teams Medical Administrative Relationship Specialty Start Date End Date Medina Hall NP PCP - General Family Medicine, ADVANCED MANUFACTURING VICE PRESIDENT 02/08/13
--- OUTSIDE RECORDS SUMMARY | 2024-05-23 17:52 | XMS_ITS | Clinical Summary ---
Author Organization [facility] ity Address [address] [place] [address] Care Team Providers Care Physician Assistant Certified Name Role Phone Gladis Aguilar MD Primary Care Provider [phone] Social History Tobacco Use Types Packs/Day Years Used Date Smoking Tobacco: Never Assessed Comments Unknown Sex and Gender Information Value Date Recorded Sex Assigned at Not on file Legal Sex Female 10:35 AM EST Gender Identity Not on file Sexual Orientation Not on file Last Filed Vital Signs Vital Sign Reading Time Taken Comments Blood Pressure 130/70 07/26/2022 12:55 PM EDT Si tting L Arm Pulse 90 07/26/2022 12:55 PM EDT Temperature - - Respiratory Rate - - Oxygen Saturation - - Inhaled Oxygen Concentration - - Weight 77.6 kg (171 lb) 07/26/2022 12:55 PM EDT Height 147.3 cm (4' 10 ) 07/26/2022 12:55 PM EDT Body Mass Index 35.74 07/26/2022 12:55 PM EDT Plan of Treatment Health Maintenance Due Date Last Done Comments Breast Cancer Screening 1965 DTaP,Tdap,and Td Vaccines (1 - Tdap) 1982 Cervical Cancer Screening: P ap Smear 01/23/1984 Pneumococcal Vaccine: 50+ Ye ars (1 of 1 - PCV) 2013 Zoster Vaccines (1 of 2) 2013 Colorectal Cancer Screening: Colonoscopy 03/15/2023 Depression Screening 03/15/2023 HIV Screening 03/15/2023 Hepatitis C Screening 03/15/2023 Social Influencers of Health Screening 03/15/2023 COVID-19 Vaccine (1 - 2023-2 5 season) 2023 Influenza Vaccine (#1) 2023 RSV Immunization Adult Patie nts (1 - 1-dose 75+ series) 2038 HIB Vaccines Aged Out No longer eligi ble based on patient's age to complete this topic HPV Vaccines Aged Out No longer eligi ble based on patient's age to complete this topic Hepatitis A Vaccines Aged Out No long er eligible based on patient's age to complete this topic Hepatitis B Vaccines Aged Out No long er eligible based on patient's age to complete this topic IPV Vaccines Aged Out No longer eligi ble based on patient's age to complete this topic MMR Vaccines Aged Out No longer eligi ble based on patient's age to complete this topic Meningococcal ACWY Vaccine Aged Out N o longer eligible based on patient's age to complete this topic Meningococcal B Vaccine Aged Out No l onger eligible based on patient's age to complete this topic Pneumococcal Vaccine: Pediat rics (0 to 5 Years) and At-Risk Patients (6 to 64 Years) Aged Out No longer eligible b ased on patient's age to complete this topic RSV Immunization Patients Un sudhir 20 months Aged Out No longer eligible b ased on patient's age to complete this topic Varicella Vaccines Aged Out No longer eligible based on patient's age to complete this topic Care Teams Physician Assistant Certified Relationship Specialty Start Date End Date Gladis Aguilar MD [address] [place] [address] , [address] [facility] D/B/A: [facility] CATE Patel PCP - General 06/21/22
== END 2024-05-23 17:26 | disposition home or self-care (01) ==
LOC: HO.HMCH 16:48
PROVIDERS: PCP Internal Medicine; Visit Provider Internal Medicine
DX: E03.9 Hypothyroidism, unspecified (principal); E11.9 Type 2 diabetes mellitus without complications; E78.2 Mixed hyperlipidemia; K21.9 Gastro-esophageal reflux disease without esophagitis

== ENCOUNTER → 2024-05-23 16:48 | Outpatient (BNVA) | payer OTHER, SELFPAY | PROVIDERS: PCP Internal Medicine; Visit Provider Internal Medicine | DX: E03.9 Hypothyroidism, unspecified (principal); E11.9 Type 2 diabetes mellitus without complications; E78.2 Mixed hyperlipidemia; K21.9 Gastro-esophageal reflux disease without esophagitis | CPT/HCPCS: 83036; 99212 ==

== ENCOUNTER 2024-09-21 07:48 | Outpatient (REF) | payer OTHER, SELFPAY ==
[2024-09-21 08:48] LABS: Alanine Aminotransferase 24 U/L (0-31); Albumin Level 4.2 g/dL (3.5-5.0); Alkaline Phosphatase 93 U/L (39-117); Anion Gap 11 (12-20); Aspartate Amino Transferase 27 U/L (5-31); Blood Urea Nitrogen 12 mg/dL (9-16); Calcium 9.2 mg/dL (8.4-10.2); Carbon Dioxide 28 mmol/L (22-29); Chloride 104 mmol/L (96-108); Cholesterol 247 mg/dL (<200); Estimated Glomerular Filt Rate > 60; HDL Cholesterol 38 mg/dL (>40); Potassium 4.4 mmol/L (3.3-5.1); Sodium 139 mmol/L (135-145); Total Protein 7.8 g/dL (6.5-8.0); Triglycerides 154 mg/dL (<150)
[2024-09-21 08:57] LABS: Thyroid Stimulating Hormone 1.13 uIU/mL (0.32-4.0)
[2024-09-21 09:39] LABS: Microalbum/Creatinine Ratio Ur 7.6 ug/mg cr (<30)
== END 2024-09-21 07:49 | disposition home or self-care (01) ==
LOC: HO.LAB 07:48
PROVIDERS: PCP Internal Medicine; Visit Provider Internal Medicine
DX: E11.9 Type 2 diabetes mellitus without complications (principal); E55.9 Vitamin D deficiency, unspecified; R80.9 Proteinuria, unspecified; E78.5 Hyperlipidemia, unspecified; E03.9 Hypothyroidism, unspecified
CPT/HCPCS: 36415; 80053; 80061; 82043; 82306; 82570; 84443

== ENCOUNTER 2024-10-04 15:35 | Outpatient (AMB) | payer OTHER, SELFPAY ==
--- OUTSIDE RECORDS SUMMARY | 2024-10-04 15:38 | XMS_ITS | Clinical Summary ---
Author Organization [facility] ity Address [address] [place] [address] Care Team Providers Care Alumni Relations Officer Name Role Phone Gladis Aguilar MD Primary Care Provider [phone] Social History Tobacco Use Types Packs/Day Years [...] 2) 2013 Colorectal Cancer Screening: Colonoscopy 03/15/2023 HIV Screening 03/15/2023 Hepatitis C Screening 03/15/2023 Social Influencers of Health Screening 03/15/2023 COVID-19 Vaccine ( - 2023-2 5 season) 2023 Depression Screening 02/15/2024 Influenza Vaccine (#1) 2024 RSV Immunization Adult Patie nts (1 - [...] age to complete this topic Care Teams Alumni Relations Officer Relationship Specialty Start Date End Date Gladis Aguilar MD [address] [place] [address] , [address] [facility] D/B/A: [facility] CATE Patel PCP - General 06/21/22
--- OUTSIDE RECORDS SUMMARY | 2024-10-04 15:38 | XMS_ITS | Patient Health Record ---
Author Organization [facility] Address [address] [place] [id number] Care Team Providers Care Face Boss Name Role Phone Gladis Kent Primary Care Provider Pola Weiss Jr Unavailable [phone] Reason For Referral No Information Medications Medication SIG (Take, Route, Frequency, Duration) Notes Start Date End Date Status Levothyroxine Sodium 112 MCG 1 tablet on an empty stomach in the morning Orally Once a day Active Janumet XR 50-1000 MG 2 tablets with vanita perla meal Orally Once a day Active Atorvastatin Calcium 80 MG 1 tablet Oral ly Once a day Active Ezetimibe 10 MG 1 tablet Orally Once a day Active Colyte with Flavor Packs 240 GM As directed Orally Over the specified time. for 1 day(s) Active Ibuprofen 800 MG 1 tablet with food o r milk as needed Orally Three times a day Active Social History Tobacco Use: Social History Observation Description Date Details (start date - stop date) Never Smoker NA - NA Tobacco Use/Smoking Question Answer Notes Patient is a nonsmoker Alcohol Screen Question Answer Notes Did you have a drink containing alcohol in the p ast year? No Points 0 Interpretation Negative Problems Problem Type SNOMED Code ICD Code Onset Dates Problem Status W/U Status Risk Notes Problem [id number] Colon cancer screening (Z12.11) Active confirmed Problem [id number] Rectal pain (K62.89) Active confirmed Plan Of Treatment Future Test Test Name Order Date COLONOSCOPY 08/05/2017 Insurance Providers Payer Name Payer Address Payer Phone Subscriber Number Group Number Insured Name Patient Relationship to Insured Coverage Start Date Coverage End Date [facility] [address] [place] [address] [id number] ALANNA CHAMPAGNE Self - patient is the insured MEDICAID OF [facility] [address] [place] [address] [phone] [id number] ALANNA CHAMPAGNE Self - patient is the insured Medical (General) History Medical History History ICD Code diabetes mellitus elevated cholesterol Surgical History Surgery Date(Month/Year) hysterectomy and ovarian cyst removal.
--- OUTSIDE RECORDS SUMMARY | 2024-10-04 15:38 | XMS_ITS | Patient Health Record ---
[facility] Address [address] [place] [address] Care Team Providers Care Government Affairs Researcher Name Role Phone Robert GONZALEZ, Gladis Primary Care Provider Unavail able Susan Cox Unavailable [phone] Reason For Referral No Information Medications Medication SIG (Take, Route, Fr equency, Duration) Notes Start Date End Date Status metFORMIN HCl Active glipiZIDE Active Atorvastatin Calcium Active Levothyroxine Sodium Active Immunizations Vaccine Route Administration Date Status Comme nts Influenza Unknown 12/26/2014 Administered Problems Problem Type SNOMED Code ICD Code Onset Dates Problem Status W/U Status Risk Notes Problem Type 2 diabetes mellitus without complication (E11.9) Active confirmed Plan Of Treatment No Information Insurance Providers Payer Name Payer Address Payer Phone Subscriber Number Group Number Insured Name Patient Relationship to Insured Coverage Start Date Coverage End Date DO NOT TAKE [employer] [address] [place] [address] [id number] Tung Madison Spouse - patient is the spouse of the insured Medical (General) History Medical History History ICD Code Arthritis Diabetic Thyroid disorder High Cholesterol Surgical History Surgery Date(Month/Year) hysterectomy 05-06-2014
--- OUTSIDE RECORDS SUMMARY | 2024-10-04 15:38 | XMS_ITS | Clinical Summary ---
Author Organization [facility] Address [address] [place] [address] Care Team Providers Care Supervisory Training Specialist Name Role Phone Medina Hall NP Primary Care Provider + [phone] Source Comments PLEASE NOTE, if this patient [...] 0 02/08/2013 Active lancetsIndicati ons:DM (diabetes mellitus) (CMS & [facility]HS-[facility]) FSBS once daily 100 Each 02/08/2013 Active alcohol swabsIndication s:DM (diabetes mellitus) (CMS & [facility]HS-[facility]) FSBS Once daily 90 Each 02/08/2013 Active blood sugar diagnostic (FREESTYLE TEST) stripsIndicatio ns:DM (diabetes mellitus) (CMS & [facility]) as needed for high blood sugar. 100 Each 02/08/2013 Active naproxen (EC NAPROSYN) 500 mg [...] 50 mcg/actuation nasal sprayIndication s:Sinusitis Place 1 [place] into the nostril(s) once daily. 16 g 2 03/28/2013 Active cetirizine (ZYRTEC) 5 mg tabletIndicatio ns:Sinusitis Take 1 Tab by mouth once daily. 30 Tab 2 03/28/2013 Active levothyroxine (SYNTHROID, LEVOTHROID) 150 mcg tabletIndicatio ns:Hypothyroid Take 1 tablet by mouth once daily. 30 tablet 2 10/11/2013 Active metFORMIN (GLUCOPHAGE) 500 mg tabletIndicatio ns:DM (diabetes mellitus) (CMS & HHS-HCC) Take 1 Tab by mouth once daily with breakfast. 90 Tab 0 11/12/2013 Active Active Problems Problem Noted Date Diagnosed Date DM (diabetes mellitus) (CMS & HHS-HCC) 3 HTN (hypertension) 02/08/2013 Hypothyroid 02/08/2013 Dyslipidemia 02/08/2013 [...] 100 03/28/2013 2:15 PM EST Temperature 36.6 C (97.9 F) 03/28/2013 2:15 PM EST Respiratory Rate 19 03/28/2013 2:15 PM EST Oxygen Saturation - - Inhaled Oxygen Concentration - - Weight 82.6 kg (182 lb) 03/28/2013 2:15 PM EST Height 152.4 cm (5') 03/28/2013 2:15 PM EST Body Mass Index 35.54 03/28/2013 2:15 PM EST Plan of Treatment Not on file Insurance [employer] Member Subscriber Plan / Payer ( fective 2013-Present) Name:Vicky Madison Relation to Subscriber:Self Name:Vicky Madison Payer ID:[id number] Group ID:Not on file Type:Indemnity Address: [address] SAFETY NET Care Teams Supervisory Training Specialist Relationship Specialty Start Date End Date Medina Hall NP PCP - General Family Medicine, NEWS COMMENTATOR 02/08/13
--- NOTE | 2024-10-04 15:51 | MHC.PC.OV ---
Vital Signs 10/04/24 15:53 Height 4 ft 6 in Weight 166 lb 6 oz BMI 40.1 BP 130/72 Blood Pressure Location Lt brachial Position Sitting Pulse 86 Pulse Source Pulse Oximeter Temp 97.3 F Temp Source Temporal Artery Scan Pulse Oximetry (%) 97 Oxygen Delivery Method Room Air Intake Visit Reasons: 4 MONTHS DM Intake Note: Patient is here to follow up on DM. Industrial Sales Manager Required: Yes Industrial Sales Manager Language: Tajik Information Interpreted: non-clinical & clinical Green Building Energy Engineer: Present Accompanied by: Spouse Allergies Seasonal Allergies Allergy (Mild, Verified 10/04/24 16:17) Itchy Eyes No Known Drug Allergies Allergy (Unknown, Verified 10/04/24 16:17) Unknown Medication List - Last Reconciled 10/04/24 by Gladis Aguilar MD acetaminophen 500 mg PO Q6H PRN atorvastatin 80 mg PO DAILY 90 days blood sugar diagnostic As directed blood sugar diagnostic (FreeStyle Lite Strips) As directed once per day blood-glucose meter (FreeStyle Lite Meter kit) As directed cholecalciferol (vitamin D3) 50 mcg PO DAILY 90 days ezetimibe 10 mg PO DAILY 90 days lancets As directed lancets (FreeStyle Lancets) As directed levothyroxine 125 mcg PO DAILY 90 days omeprazole 20 mg PO DAILY 90 days sitagliptin phos-metformin 50-1,000 mg ER 1 tab PO BID 30 days Tobacco use date assessed: 10/04/24 Dental Screening Dental Screen Date: 05/23/24 HPI HPI Comments History of Present Illness Details The patient is a 59-year-old female presenting for follow-up of her chronic conditions, including diabetes, thyroid disorder, hypertension, and hyperlipidemia. She is morbidly obese with a BMI of 40.1 and was advised to do diet and exercise. The patient has a history of diabetes mellitus, with her most recent HbA1c recorded at 6%, indicating good glycemic control. She monitors her blood glucose at home, reporting consistent readings around 100 mg/dL. The patient is also managing hypothyroidism, with recent thyroid function tests reported as normal. Hyperlipidemia is a significant concern, with a total cholesterol level of 247 mg/dL and an LDL cholesterol level of 179 mg/dL, which is notably above the target of 70 mg/dL due to her diabetic status. The patient had a lapse in taking atorvastatin due to forgetting to refill her prescription, which may have contributed to the elevated cholesterol levels. Hypertension is well-controlled with current readings at 130/72 mmHg. The patient reports occasional anxiety, which she manages with chamomile tea and water, noting that it resolves spontaneously. [facility] Medical History (Updated 10/05/24 @ 08:19 by Gladis Aguilar MD) Morbid obesity with BMI of 40.0-44.9, adult Hypothyroidism Morbid obesity due to excess calories Essential hypertension Rash due to allergy Rash Rib pain Mixed hyperlipidemia Hypothyroidism Diabetes mellitus Surgical History S/P DUSTIN-BSO (total abdominal hysterectomy and bilateral salpingo-oophorectomy) Family History Father Cirrhosis History of ETOH abuse Mother Hypertension Family/Other Breast cancer Social History Housing: Apartment Alcohol intake: never Patient Tobacco Use Status: Never used Tobacco e-Cigarette/Vaping Use: Never Used Second Hand Smoke Exposure: No service: No Current occupational status: unemployed Cognitive needs: No Hearing needs: No Vision needs: No Questionnaire PHQ-9 Over the last 2 weeks, how often have you been bothered by any of the following problems? 1. Little interest or pleasure in doing things: not at all 2. Feeling down, depressed, or hopeless: not at all 3. Trouble falling or staying asleep, or sleeping too much: not at all 4. Feeling tired or having little energy: not at all 5. Poor appetite or overeating: not at all 6. Feeling bad about yourself - or that you are a failure or have let yourself or your family down: not at all 7. Trouble concentrating on things, such as reading the newspaper or watching television: not at all 8. Moving or speaking so slowly that other people could have noticed. Or the opposite - being so fidgety or restless that you have been moving around a lot more than usual: not at all 9. Thoughts that you would be better off or of hurting yourself in some way: not at all Total score: 0 Depression Screening Interpretation: Negative Depression Screening Done: Yes 33247 - PHQ-9 Billing: Yes Source: Developed by Drs. Ricky Lopez, Acacia Wild, Matias Lynch and colleagues, with an educational judah from [employer]. Thrive Questionnaire Date Thrive assessed: 05/23/24 BETINA-7 AMB Questionnaire BETINA-7 Date BETINA - 7 assessed: 10/04/24 Feeling nervous, anxious, or on edge: 0 = Not at all Not being able to stop or control worryin = Not at all Worrying too much about different things: 0 = Not at all Trouble relaxin = Not at all Being so restless that it is hard to sit still: 0 = Not at all Becoming easily annoyed or irritable: 0 = Not at all Feeling afraid as if something awful might happen: 0 = Not at all Total BETINA-7 score (0-4 normal; 5-9 mild; 10-14 moderate; 15-21 severe): 0 Source: Developed by Drs. Ricky Lopez, Acacia Wild, Matias Lynch and colleagues, with an educational judah from [employer]. BETINA-7 Assessment Billing BETINA-7 Assessment Tool: BETINA-7 Assessment 33839 Review of Systems Const All systems reviewed & are unremarkable except as noted in HPI and below Card Denies chest pain at rest, Denies chest pain with activity, Denies edema, Denies irregular heart rhythm, Denies claudication, Denies dyspnea, Denies dyspnea on exertion, Denies orthopnea, Denies paroxysmal nocturnal dyspnea and Denies slow heart rate Resp Denies cough, Denies dyspnea and Denies dyspnea on exertion GI Denies abdominal pain, Denies change in bowel habits, Denies excessive flatus, Denies nausea and Denies vomiting Skin/Breast Denies bleeding lesions, Denies changing lesions and Denies rash Neuro Denies behavioral changes and Denies lack of coordination Psych Denies behavioral changes Physical exam (Primary Care) Vital Signs: Last Vital Signs Temp 97.3 F 10/04/24 15:53 Pulse 86 10/04/24 15:53 BP 130/72 10/04/24 15:53 Pulse Ox 97 10/04/24 15:53 Oxygen Delivery Method Room Air 10/04/24 15:53 BMI result Body Mass Index 40.1 BMI Assessment/Plan discussion: High BMI High, discussed plan: lifestyle, weight reduction, dietary and physical activity Tobacco/Smoking Status: Tobacco use Status Tobacco use date assessed 10/04/24 10/04/24 16:01 Patient Tobacco Use Status Never used Tobacco 10/04/24 15:51 Tobacco use type 10/26/22 13:36 e-Cigarette/Vaping Use Never Used 10/04/24 15:51 PHQ-9: PHQ-9 Score PHQ-9: Total score 0 10/04/24 16:22 Depression Screening Interpretation: Negative Thrive Assessment: Date of Thrive Assessment Date Thrive assessed 05/23/24 10/04/24 15:51 Resp Effort & Inspection: normal respiratory effort Auscultation: clear to auscultation bilaterally Cardio Jugular venous distension: no JVD Rate: regular rate Rhythm: regular rhythm Heart sounds: S1 normal heart sound present and S2 normal heart sound present Extrem General: Yes full ROM Results AMB Hemoglobin A1c AMB Hemoglobin A1c 6.0 % Last Edit by NOEMI Sibley on 10/04/24 16:07 Results Reviewed Results Reviewed: Laboratory Last Values Hgb A1c (Clinic) 6.0 % (4.0-6.0) 10/04/24 15:50 Coding Level of Care Code Est Pt Level 4 (11013) Complex EM visit Add On G2211 Diagnoses Type 2 diabetes mellitus without complication, without long-term current use of insulin E11.9 Diabetes mellitus type: type 2 Diabetes mellitus usp insulin use: without usp use Diabetes mellitus complication status: without complication Acquired hypothyroidism E03.9 Hypothyroidism type: acquired Essential hypertension I10 Mixed hyperlipidemia E78.2 Morbid obesity with BMI of 40.0-44.9, adult E66.01; Z68.41 Additional Codes BETINA-7 Assessment Billing - BETINA-7 Assessment Tool: BETINA-7 Assessment 47174 ([id number]) PHQ-9 - 94773 - PHQ-9 Billing: Yes ([id number]) Time Spent (min) 23 Assessment & Plan Assessment & Plan (1) Diabetes mellitus: Code(s): E11.9 - Type 2 diabetes mellitus without complications Category: Medical Qualifiers: Diabetes mellitus type: type 2 Diabetes mellitus regional intermodal truck driver insulin use: without usp use Diabetes mellitus complication status: without complication Qualified Code(s): E11.9 - Type 2 diabetes mellitus without complications (2) Hypothyroidism: Code(s): E03.9 - Hypothyroidism, unspecified Category: Medical Qualifiers: Hypothyroidism type: acquired Qualified Code(s): E03.9 - Hypothyroidism, unspecified (3) Essential hypertension: Code(s): I10 - Essential (primary) hypertension Category: Medical (4) Mixed hyperlipidemia: Code(s): E78.2 - Mixed hyperlipidemia Category: Medical (5) Morbid obesity with BMI of 40.0-44.9, adult: Code(s): E66.01 - Morbid (severe) obesity due to excess calories; Z68.41 - Body mass index [BMI] 40.0-44.9, adult Category: Medical Plan The patient will continue with her current diabetes management plan, as her HbA1c indicates good control. For hyperlipidemia, the patient will resume atorvastatin and ezetimibe to address elevated cholesterol levels, with a follow-up lipid panel in four months to assess efficacy. Hypertension management will continue as current readings are within target range. The patient is advised to maintain a low-sodium diet and monitor her blood pressure regularly. For anxiety, non-pharmacological interventions such as chamomile tea are recommended, with the option to discuss further treatment if symptoms persist. Patient was informed and verbally consented to the use of an ambient scribe for clinic note documentation during this visit. Orders: Orders AMB Hemoglobin A1c 10/04/25 E11.9 - Type 2 diabetes mellitus without complications Microalbumin, Random (w Creat) 4 Months R80.9 - Proteinuria, unspecified Vitamin D 25-OH Total 4 Months E55.9 - Vitamin D deficiency, unspecified Lipid Panel 4 Months E78.5 - Hyperlipidemia, unspecified Comprehensive [place]. Panel Fast 4 Months E11.9 - Type 2 diabetes mellitus without complications Thyroid Stimulating Hormone 4 Months E03.9 - Hypothyroidism, unspecified Referrals Dermatology Referral L98.9 - Disorder of the skin and subcutaneous tissue, unspecified Medications: Refilled cholecalciferol (vitamin D3) 50 mcg PO DAILY 90 caps 3RF 90 days levothyroxine 125 mcg PO DAILY 90 tabs 1RF 90 days sitagliptin phos-metformin 50-1,000 mg ER 1 tab PO BID 60 tabs 3RF 30 days E11.9 - Type 2 diabetes mellitus without complications atorvastatin 80 mg PO DAILY 90 tabs 0RF 90 days ezetimibe 10 mg PO DAILY 90 tabs 0RF 90 days omeprazole 20 mg PO DAILY 90 caps 1RF 90 days K21.9 - Gastro-esophageal reflux disease without esophagitis
[2024-10-04 15:53] VITALS: BP 130/72; PULSE 86; TEMP 36.3; O2SAT 97; BMI 40.1
== END 2024-10-04 16:33 | disposition home or self-care (01) ==
LOC: HO.HMCH 15:36
PROVIDERS: PCP Internal Medicine; Visit Provider Internal Medicine
DX: E11.9 Type 2 diabetes mellitus without complications (principal)

== ENCOUNTER → 2024-10-04 15:35 | Outpatient (BNVA) | payer OTHER, SELFPAY | PROVIDERS: PCP Internal Medicine; Visit Provider Internal Medicine | DX: E11.9 Type 2 diabetes mellitus without complications (principal); I10 Essential (primary) hypertension; E78.5 Hyperlipidemia, unspecified; E66.01 Morbid (severe) obesity due to excess calories; Z68.41 Body mass index [BMI] 40.0-44.9, adult; E03.9 Hypothyroidism, unspecified; E78.2 Mixed hyperlipidemia | CPT/HCPCS: 83036; 96127; 99212 ==

== ENCOUNTER 2024-10-22 12:43 | Outpatient (REF) | payer OTHER, SELFPAY ==
--- OUTSIDE RECORDS SUMMARY | 2024-10-22 14:52 | XMS_ITS | Clinical Summary ---
Author Organization [facility] ity Address [address] [place] [address] Care Team Providers Care Cassandra Developer Name Role Phone Gladis Aguilar MD Primary Care Provider [phone] Social History Tobacco Use Types Packs/Day Years [...] 03/15/2023 Social Influencers of Health Screening 03/15/2023 Depression Screening 02/15/2024 COVID-19 Vaccine (1 - 2023-2 5 season) 2024 Influenza Vaccine (#1) 2024 RSV Immunization Adult [...] age to complete this topic Care Teams Cassandra Developer Relationship Specialty Start Date End Date Gladis Aguilar MD [address] [place] [address] , [address] [facility] D/B/A: [facility] CATE Patel PCP - General 06/21/22
--- OUTSIDE RECORDS SUMMARY | 2024-10-22 14:52 | XMS_ITS | Patient Health Record ---
Author Organization [facility] Address [address] [place] [address] Care Team Providers Care Knockdown Man Name Role Phone Gladis Kent Primary Care Provider Pola Weiss Jr Unavailable [phone] Reason For Referral No Information Medications Medication [...] Problem Status W/U Status Risk Notes Problem [id number] Colon cancer screening (Z12.11) Active confirmed Problem [id number] Rectal pain (K62.89) Active confirmed Plan Of Treatment Future Test Test Name Order Date COLONOSCOPY 08/05/2017 Insurance Providers Payer Name Payer Address Payer Phone Subscriber Number Group Number Insured Name Patient Relationship to Insured Coverage Start Date Coverage End Date [facility] [address] [place] [address] [id number] ALANNA CHAMPAGNE Self - patient is the insured MEDICAID OF [facility] [address] [place] [address] [phone] [id number] ALANNA CHAMPAGNE Self - patient is the insured Medical (General) History Medical History History ICD Code diabetes mellitus elevated cholesterol Surgical History Surgery Date(Month/Year) hysterectomy and ovarian cyst removal.
--- OUTSIDE RECORDS SUMMARY | 2024-10-22 14:52 | XMS_ITS | Patient Health Record ---
[facility] Address [address] [place] [address] Care Team Providers Care De Ionizer Operator Name Role Phone Robert GONZALEZ, Gladis Primary Care Provider Unavail able Susan Cox Unavailable [phone] Reason For Referral No Information Medications Medication SIG (Take, Route, Fr equency, Duration) Notes Start Date End Date Status metFORMIN HCl Active glipiZIDE Active Atorvastatin Calcium Active Levothyroxine Sodium Active Immunizations Vaccine Route Administration Date Status Comme nts Influenza Unknown 12/26/2014 Administered Problems Problem Type SNOMED Code ICD Code Onset Dates Problem Status W/U Status Risk Notes Problem Type II diabetes mellitus without complication ([id number]) Type 2 diabetes mellitus without complication (E11.9) Active confirmed Plan Of Treatment No Information Insurance Providers Payer Name Payer Address Payer Phone Subscriber Number Group Number Insured Name Patient Relationship to Insured Coverage Start Date Coverage End Date DO NOT TAKE [employer] Plan/[facility] [address] [place] [address] [id number] Tung Madison Spouse - patient is the spouse of the insured Medical (General) History Medical History History ICD Code Arthritis Diabetic Thyroid disorder High Cholesterol Surgical History Surgery Date(Month/Year) hysterectomy 05-06-2014
== END 2024-10-22 12:44 | disposition home or self-care (01) ==
LOC: HO.MAMMO 12:43
PROVIDERS: PCP Internal Medicine; Visit Provider Internal Medicine
DX: Z12.31 Encounter for screening mammogram for malignant neoplasm of breast (principal)
CPT/HCPCS: 77063; 77067

== ENCOUNTER → 2024-10-22 13:45 | Outpatient (BNV) | payer OTHER, SELFPAY | PROVIDERS: PCP Internal Medicine; Visit Provider Internal Medicine | DX: Z12.31 Encounter for screening mammogram for malignant neoplasm of breast (principal) | CPT/HCPCS: 77063; 77067 ==

== ENCOUNTER 2024-11-13 08:42 | Outpatient (REF) | payer OTHER, SELFPAY ==
--- NOTE | ~2024-11-13 | MM_ITS ---
EXAMINATION(S): 1. MM DIAGNOSTIC DIGITAL BREAST TOMOSYNTHESIS, RIGHT 2. Targeted ultrasound of the right breast CLINICAL INFORMATION: Callback from screening to right breast findings: - Right asymmetry in the superior breast posterior depth on the MLO view - Right focal asymmetry in the central inner medial breast. COMPARISON: Comparison made to multiple prior, most recent October 22, 2024, and most remote September 07, 2021. TECHNIQUE: Digital breast tomosynthesis is performed in full-field ML 90 degrees and XCCL along with computer-aided detection (CAD). Synthesized 2D images are generated from the tomosynthesis. Spot compression tomosynthesis were obtained. FINDINGS: BREAST COMPOSITION: There are scattered areas of fibroglandular density. RIGHT BREAST: -Previously described asymmetry in the superior breast posterior depth at approximately 7 cm from the nipple on MLO view presses out with spot compression. Local parenchyma is similar to multiple prior studies as far back as 2021, and most likely represented overlapping fibroglandular breast tissue. -Previously described focal asymmetry in the lower inner quadrant persists with spot compression at approximately 4.5 cm from the nipple, in the vicinity of the ribbon shape biopsy marker. Targeted ultrasound of the right breast was performed at the location of the mammographic finding. The survey shows a 0.9 x 0.5 x 0.8 cm cluster of cysts at 4 o'clock position 5 cm from the nipple. No abnormal internal vascularity demonstrated with color Doppler evaluation. MM/MM tomosynthesis added views R IMPRESSION: RIGHT BREAST: Cluster of cysts at 4 o'clock position 5 cm from the nipple correlating with the mammographic finding adjacent to the ribbon shape biopsy clip. Probably benign. A 6-month follow-up mammogram is recommended. ASSESSMENT: BI-RADS: Category 3: Probably benign RECOMMENDATION: 6 Month F/U Results were provided to the patient at time of visit by the technologist. This patient's information was entered into a reminder system with a target due date for their next mammogram. Electronically signed by: Adriana Betts MD 11/13/2024 11:30 AM EDT
--- OUTSIDE RECORDS SUMMARY | 2024-11-13 09:12 | XMS_ITS | Clinical Summary ---
Author Organization [facility] Address [address] [place] [address] Care Team Providers Care Supervisor Nurse Name Role Phone Medina Hall NP Primary Care Provider + [phone] Source Comments PLEASE NOTE, if this patient [...] 0 02/08/2013 Active lancetsIndicati ons:DM (diabetes mellitus) FSBS once daily 100 Each 02/08/2013 Active alcohol swabsIndication s:DM (diabetes mellitus) FSBS Once daily 90 Each 02/08/2013 Active blood sugar diagnostic (FREESTYLE TEST) stripsIndicatio ns:DM (diabetes mellitus) as needed for high blood sugar. 100 [...] 50 mcg/actuation nasal sprayIndication s:Sinusitis Place 1 [place] into the nostril(s) once daily. 16 g 2 03/28/2013 Active cetirizine (ZYRTEC) 5 mg tabletIndicatio ns:Sinusitis Take 1 Tab by mouth once daily. 30 Tab 2 03/28/2013 Active levothyroxine (SYNTHROID, LEVOTHROID) 150 mcg tabletIndicatio ns:Hypothyroid Take 1 tablet by mouth once daily. 30 tablet 2 10/11/2013 Active metFORMIN (GLUCOPHAGE) 500 mg tabletIndicatio ns:DM (diabetes mellitus) Take 1 Tab by mouth once daily with breakfast. 90 Tab 0 11/12/2013 Active Active Problems Problem Noted Date Diagnosed Date DM (diabetes mellitus) 02/08/2013 HTN (hypertension) 02/08/2013 Hypothyroid 02/08/2013 Dyslipidemia [...] Plan of Treatment Not on file Insurance [employer] Member Subscriber Plan / Payer ( fective 2013-Present) Name:Gricelda Vicky Relation to Subscriber:Self Name:Vicky Madison Payer ID:[id number] Group ID:Not on file Type:Indemnity Address: [address] [employer]AFET[employer] NET Care Teams Supervisor Nurse Relationship Specialty Start Date End Date Medina Hall NP PCP - General Family Medicine, VIDEO SYSTEMS ENGINEER 02/08/13
--- OUTSIDE RECORDS SUMMARY | 2024-11-13 09:12 | XMS_ITS | Clinical Summary ---
Author Organization [facility] ity Address [address] [place] [address] Care Team Providers Care Geophysical Operator Name Role Phone Gladis Aguilar MD Primary Care Provider [phone] Social History Tobacco Use Types Packs/Day Years [...] Last Done Comments Breast Cancer Screening 1965 Colorectal Cancer Screening: Colonoscopy 1963 DTaP,Tdap,and Td Vaccines (1 - Tdap) 1982 Cervical Cancer Screening: P ap Smear 01/23/1984 Pneumococcal Vaccine: 50+ Ye ars (1 of 1 - PCV) 2013 Zoster Vaccines (1 of 2) 2013 HIV Screening 03/15/2023 Hepatitis C Screening 03/15/2023 [...] age to complete this topic Care Teams Geophysical Operator Relationship Specialty Start Date End Date Gladis Aguilar MD [address] [place] [address] , [address] [facility] Physician Associ D/B/A: [facility] CATE Patel PCP - General 06/21/22
--- OUTSIDE RECORDS SUMMARY | 2024-11-13 09:12 | XMS_ITS | Patient Health Record ---
[facility] Address [address] [place] [address] Care Team Providers Care Speech Therapy Teacher Name Role Phone Robert GONZALEZ, Gladis Primary Care Provider Unavail able Susan Cox Unavailable [phone] Reason For Referral No Information Medications Medication [...] Problem Type II diabetes mellitus without complication (106649472) Type 2 diabetes mellitus without complication (E11.9) Active confirmed Plan Of Treatment No Information Insurance Providers Payer Name Payer Address Payer Phone Subscriber Number Group Number Insured Name Patient Relationship to Insured Coverage Start Date Coverage End Date DO NOT TAKE [employer] [address] [place] [address] [id number] Tung Madison Spouse - patient is the spouse of the insured Medical (General) History Medical History History ICD Code Arthritis Diabetic Thyroid disorder High Cholesterol Surgical History Surgery Date(Month/Year) hysterectomy 05-06-2014
--- OUTSIDE RECORDS SUMMARY | 2024-11-13 09:12 | XMS_ITS | Patient Health Record ---
Author Organization [facility] Address [address] [place] [address] Care Team Providers Care Janitorial Cleaner Name Role Phone Gladis Kent Primary Care Provider Pola Weiss Jr Unavailable [phone] Reason For Referral No Information Medications Medication [...] Problem Status W/U Status Risk Notes Problem [id number] Colon cancer screening (Z12.11) Active confirmed Problem 53102149 Rectal pain (K62.89) Active confirmed Plan Of Treatment Future Test Test Name Order Date COLONOSCOPY 08/05/2017 Insurance Providers Payer Name Payer Address Payer Phone Subscriber Number Group Number Insured Name Patient Relationship to Insured Coverage Start Date Coverage End Date [facility] [address] [place] [address] [phone] [id number] ALANNA CHAMPAGNE Self - patient is the insured MEDICAID OF [facility] [address] [place] [address] [phone] [id number] ALANNA CHAMPAGNE Self - patient is the insured Medical (General) History Medical History History ICD Code diabetes mellitus elevated cholesterol Surgical History Surgery Date(Month/Year) hysterectomy and ovarian cyst removal.
== END 2024-11-13 08:43 | disposition home or self-care (01) ==
LOC: HO.MAMMO 08:42
PROVIDERS: PCP Internal Medicine; Visit Provider Internal Medicine
DX: N64.89 Other specified disorders of breast (principal)
CPT/HCPCS: 76642; 77061; 77065

== ENCOUNTER → 2024-11-13 09:00 | Outpatient (BNV) | payer OTHER, SELFPAY | PROVIDERS: PCP Internal Medicine; Visit Provider Radiology Body Imaging | DX: R92.8 Other abnormal and inconclusive findings on diagnostic imaging of breast (principal) | CPT/HCPCS: 76642; 77061; 77065 ==

== ENCOUNTER 2024-12-26 13:47 | Outpatient (AMB) | payer OTHER, SELFPAY ==
--- NOTE | 2024-12-26 13:58 | MHC.PC.OV ---
Vital Signs 12/26/24 13:59 Height 4 ft 6 in Weight 161 lb 4 oz BMI 38.9 BP 142/70 H Blood Pressure Location Lt brachial Position Sitting Pulse 85 Pulse Source Pulse Oximeter Temp 97.3 F Temp Source Temporal Artery Scan Pulse Oximetry (%) 98 Oxygen Delivery Method Room Air Intake Visit Reasons: pain on RT hand Television Maintenance Worker Required: No Accompanied by: Spouse Allergies Seasonal Allergies Allergy (Mild, Verified 12/26/24 14:15) Itchy Eyes No Known Drug Allergies Allergy (Unknown, Verified 12/26/24 14:15) Unknown Medication List - Last Reconciled 12/26/24 by Gladis Aguilar MD acetaminophen 500 mg PO Q6H PRN atorvastatin 80 mg PO DAILY 90 days blood sugar diagnostic As directed blood sugar diagnostic (FreeStyle Lite Strips) As directed once per day blood-glucose meter (FreeStyle Lite Meter kit) As directed cholecalciferol (vitamin D3) 50 mcg PO DAILY 90 days ezetimibe 10 mg PO DAILY 90 days lancets As directed lancets (FreeStyle Lancets) As directed levothyroxine 125 mcg PO DAILY 90 days omeprazole 20 mg PO DAILY 90 days sitagliptin phos-metformin 50-1,000 mg ER 1 tab PO BID 30 days Tobacco use date assessed: 12/26/24 Dental Screening Dental Screen Date: 12/26/24 Did you have a dental visit in the last 12 months?: Yes Did you have a dental problem in the last 6 months where you did not have access to dental care?: No Was dental information given to patient?: Patient has dentist HPI HPI Comments History of Present Illness Details The patient is a 59-year-old female presenting for evaluation of right-sided upper extremity pain and review of recent imaging. She reports pain in her right elbow and right wrist. She also has left pain but is more prominent on the right. The right wrist is painful when extension. She also has diabetes mellitus type 2 with an A1c of 6.2% today. Hypertension well controlled with medications. Last TSH was normal for her hypothyroidism. [facility] Medical History (Updated 12/26/24 @ 15:43 by Gladis Aguilar MD) Morbid obesity with BMI of 40.0-44.9, adult Hypothyroidism Morbid obesity due to excess calories Essential hypertension Rash due to allergy Rash Rib pain Mixed hyperlipidemia Hypothyroidism Diabetes mellitus Surgical History S/P DUSTIN-BSO (total abdominal hysterectomy and bilateral salpingo-oophorectomy) Family History Father Cirrhosis History of ETOH abuse Mother Hypertension Family/Other Breast cancer Social History Housing: Apartment Alcohol intake: never Patient Tobacco Use Status: Never used Tobacco e-Cigarette/Vaping Use: Never Used Second Hand Smoke Exposure: No service: No Current occupational status: unemployed Cognitive needs: No Hearing needs: No Vision needs: No Questionnaire PHQ-9 Over the last 2 weeks, how often have you been bothered by any of the following problems? 1. Little interest or pleasure in doing things: not at all 2. Feeling down, depressed, or hopeless: not at all 3. Trouble falling or staying asleep, or sleeping too much: not at all 4. Feeling tired or having little energy: not at all 5. Poor appetite or overeating: not at all 6. Feeling bad about yourself - or that you are a failure or have let yourself or your family down: not at all 7. Trouble concentrating on things, such as reading the newspaper or watching television: not at all 8. Moving or speaking so slowly that other people could have noticed. Or the opposite - being so fidgety or restless that you have been moving around a lot more than usual: not at all 9. Thoughts that you would be better off or of hurting yourself in some way: not at all Total score: 0 Depression Screening Interpretation: Negative Depression Screening Done: Yes 65179 - PHQ-9 Billing: Yes Source: Developed by Drs. Ricky Lopez, Acacia Wild, Matias Lynch and colleagues, with an educational judah from [employer]. Thrive Questionnaire Date Thrive assessed: 05/23/24 I am a: Patient What is your living situation today?: I have a steady place to live Within the past 12 months, did the food you bought not last and you didn't have the money to get more?: Never true Within the past 12 months, did you worry whether your food would run out before you got money to buy more?: Never true Do you have trouble paying for medicines?: No Do you have trouble getting transportation to medical appointments?: No Do you have trouble paying your heating and electricity bill?: No Do you have trouble taking care of your child, family member or friend?: No Do you have trouble with day-to-day activities such as bathing, preparing meals, shopping, managing finances, etc.?: No Are you currently unemployed and looking for a job?: No Are you interested in more education?: No Please select the resources that you would like help with: None Currently or been in a relationship where the following occur: No concerns reported THRIVE Score: 0 AUDIT C Alcohol Use Questionnaire (AUDIT-C) 1. How often do you have a drink containing alcohol?: Never 3. How often do you have six or more drinks on one occasion?: Never Total Score: 0 Score Reviewed/Action Taken: No BETINA-7 AMB Questionnaire BETINA-7 Date BETINA - 7 assessed: 10/04/24 Feeling nervous, anxious, or on edge: 0 = Not at all Not being able to stop or control worryin = Not at all Worrying too much about different things: 0 = Not at all Trouble relaxin = Not at all Being so restless that it is hard to sit still: 0 = Not at all Becoming easily annoyed or irritable: 0 = Not at all Feeling afraid as if something awful might happen: 0 = Not at all Total BETINA-7 score (0-4 normal; 5-9 mild; 10-14 moderate; 15-21 severe): 0 Source: Developed by Drs. Ricky Lopez, Acacia Wild, Matias Lynch and colleagues, with an educational judah from [employer]. BETINA-7 Assessment Billing BETINA-7 Assessment Tool: BETINA-7 Assessment 19372 Review of Systems Const All systems reviewed & are unremarkable except as noted in HPI and below Card Denies chest pain at rest, Denies chest pain with activity, Denies edema, Denies irregular heart rhythm, Denies claudication, Denies dyspnea, Denies dyspnea on exertion, Denies orthopnea, Denies paroxysmal nocturnal dyspnea and Denies slow heart rate Resp Denies cough, Denies dyspnea and Denies dyspnea on exertion Musc Reports arthralgias Physical exam (Primary Care) Vital Signs: Last Vital Signs Temp 97.3 F 12/26/24 13:59 Pulse 85 12/26/24 13:59 BP 142/70 H 12/26/24 13:59 Pulse Ox 98 12/26/24 13:59 Oxygen Delivery Method Room Air 12/26/24 13:59 BMI result Body Mass Index 38.9 BMI Assessment/Plan discussion: High BMI High, discussed plan: lifestyle, weight reduction, dietary and physical activity Tobacco/Smoking Status: Tobacco use Status Tobacco use date assessed 12/26/24 12/26/24 14:04 Patient Tobacco Use Status Never used Tobacco 12/26/24 13:58 Tobacco use type 10/26/22 13:36 e-Cigarette/Vaping Use Never Used 12/26/24 13:58 PHQ-9: PHQ-9 Score PHQ-9: Total score 0 12/26/24 14:04 Depression Screening Interpretation: Negative Thrive Assessment: Date of Thrive Assessment Date Thrive assessed 05/23/24 12/26/24 13:58 Currently or been in a relationship where the following occur: No concerns reported Resp Effort & Inspection: normal respiratory effort Auscultation: clear to auscultation bilaterally Cardio Jugular venous distension: no JVD Rate: regular rate Rhythm: regular rhythm Heart sounds: S1 normal heart sound present and S2 normal heart sound present Extrem General: Yes full ROM Right upper extremity: elbow/forearm Details: tenderness and abnormal ROM Details: pain with active ROM during Details: with flexion, with pronation and with supination and wrist Details: tenderness and abnormal ROM Details: pain with active ROM during Details: with extension Left upper extremity: shoulder/upper arm Details: tenderness and abnormal ROM Details: pain with active ROM Details: in extension, in flexion, in internal rotation and external rotation- and wrist forearm Details: tenderness Results AMB Hemoglobin A1c AMB Hemoglobin A1c 6.2 % Last Edit by Brooklyn Vaughn CMA on 12/26/24 14:10 Results Reviewed Results Reviewed: Laboratory Last Values Hgb A1c (Clinic) 6.2 % (4.0-6.0) H 12/26/24 14:04 Coding Level of Care Code Est Pt Level 4 (05383) Complex EM visit Add On G2211 Diagnoses Type 2 diabetes mellitus without complication, without long-term current use of insulin E11.9 Diabetes mellitus type: type 2 Diabetes mellitus stull installer insulin use: without stull installer use Diabetes mellitus complication status: without complication Essential hypertension I10 Acquired hypothyroidism E03.9 Hypothyroidism type: acquired Left elbow pain M25.522 Right elbow pain M25.521 Left wrist pain M25.532 Right wrist pain M25.531 Left forearm pain M79.632 Right forearm pain M79.631 Additional Codes PHQ-9 - 97852 - PHQ-9 Billing: Yes ([id number]) BETINA-7 Assessment Billing - BETINA-7 Assessment Tool: BETINA-7 Assessment 56527 ([id number]) Time Spent (min) 23 Assessment & Plan Assessment & Plan (1) Diabetes mellitus: Code(s): E11.9 - Type 2 diabetes mellitus without complications Category: Medical Qualifiers: Diabetes mellitus type: type 2 Diabetes mellitus senior living insulin use: without stull installer use Diabetes mellitus complication status: without complication Qualified Code(s): E11.9 - Type 2 diabetes mellitus without complications (2) Essential hypertension: Code(s): I10 - Essential (primary) hypertension Category: Medical (3) Hypothyroidism: Code(s): E03.9 - Hypothyroidism, unspecified Category: Medical Qualifiers: Hypothyroidism type: acquired Qualified Code(s): E03.9 - Hypothyroidism, unspecified (4) Left elbow pain: Code(s): M25.522 - Pain in left elbow Category: Medical (5) Right elbow pain: Code(s): M25.521 - Pain in right elbow Category: Medical (6) Left wrist pain: Code(s): M25.532 - Pain in left wrist Category: Medical (7) Right wrist pain: Code(s): M25.531 - Pain in right wrist Category: Medical (8) Left forearm pain: Code(s): M79.632 - Pain in left forearm Category: Medical (9) Right forearm pain: Code(s): M79.631 - Pain in right forearm Category: Medical Plan Plan 1. Right Upper Extremity Pain The patient complains of pain in the right elbow, wrist, and forearm. A referral will be made to orthopedics and occupational therapy for further evaluation and management. Imaging of the arm will also be ordered. 2. Diabetes mellitus type 2 Continue same medications. A1c goal is equal or less than 7%. 3. Hypothyroidism Continue levothyroxine. Repeat TSH. 4. Essential hypertension Continue same antihypertensives. Blood pressure goal is equal or less than 130/80. Orders: Orders XR forearm RT 2V Today M79.631 - Pain in right forearm OT Evaluation and Treatment Today M25.521 - Pain in right elbow, M25.522 - Pain in left elbow, M25.531 - Pain in right wrist, M25.532 - Pain in left wrist, M79.631 - Pain in right forearm, M79.632 - Pain in left forearm AMB Hemoglobin A1c Today Z13.9 - Encounter for screening, unspecified XR wrist RT 2V Today M25.531 - Pain in right wrist XR elbow RT 2V Today M25.521 - Pain in right elbow Referrals Orthopedics Referral M25.521 - Pain in right elbow, M25.522 - Pain in left elbow, M25.531 - Pain in right wrist, M25.532 - Pain in left wrist, M79.631 - Pain in right forearm, M79.632 - Pain in left forearm Podiatry Referral E11.9 - Type 2 diabetes mellitus without complications
[2024-12-26 13:59] VITALS: BP 142/70; PULSE 85; TEMP 36.3; O2SAT 98; BMI 38.9
--- OUTSIDE RECORDS SUMMARY | 2024-12-26 16:51 | XMS_ITS | Patient Health Record ---
[facility] Address [address] [place] [address] Care Team Providers Care Home Health Provider Name Role Phone Robert GONZALEZ, Gladis Primary Care Provider Unavail able Susan Cox Unavailable [phone] Reason For Referral No Information Medications Medication [...] Problem Type II diabetes mellitus without complication ([id number]) Type 2 diabetes mellitus without complication (E11.9) Active confirmed Plan Of Treatment No Information Insurance Providers Payer Name Payer Address Payer Phone Subscriber Number Group Number Insured Name Patient Relationship to Insured Coverage Start Date Coverage End Date DO NOT TAKE [employer] [address] [place] [address] [id number] Tung Madison Spouse - patient is the spouse of the insured Medical (General) History Medical History History ICD Code Arthritis Diabetic Thyroid disorder High Cholesterol Surgical History Surgery Date(Month/Year) hysterectomy 05-06-2014
--- OUTSIDE RECORDS SUMMARY | 2024-12-26 16:51 | XMS_ITS | Patient Health Record ---
Author Organization [facility] Address [address] [place] [id number] Care Team Providers Care Rotary Drum Tanner Name Role Phone Gladis Kent Primary Care Provider Pola Weiss Jr Unavailable Reason For Referral No Information Medications Medication [...] GM As directed Orally Over the specified time.; Duration: 1 day(s) Active Ibuprofen 800 MG 1 [...] Problem Status W/U Status Risk Notes Problem Colon cancer screening (255666951) Colon cancer screening (Z12.11) Active confirmed Problem Rectal pain (14258929) Rectal pain (K62.89) Active confirmed Plan Of Treatment Future Test Test Name Order Date COLONOSCOPY 08/05/2017 Insurance Providers Payer Name Payer Address Payer Phone Subscriber Number Group Number Insured Name Patient Relationship to Insured Coverage Start Date Coverage End Date [facility] [address] [place] [phone] [id number] ALANNA CHAMPAGNE Self - patient is the insured MEDICAID OF [facility] [address] [place] [address] [id number] ALANNA CHAMPAGNE Self - patient is the insured Medical (General) History Medical History History ICD Code diabetes mellitus elevated cholesterol Surgical History Surgery Date(Month/Year) hysterectomy and ovarian cyst removal.
--- OUTSIDE RECORDS SUMMARY | 2024-12-26 16:51 | XMS_ITS | Clinical Summary ---
Author Organization [facility] Address [address] [place] [address] Care Team Providers Care Street Light Servicer Name Role Phone Gladis Aguilar MD Primary Care Provider [phone] Social History Tobacco Use Types Packs/Day Years [...] Depression Screening 02/15/2024 COVID-19 Vaccine (1 - 2024-2 6 season) 2024 Influenza Vaccine (#1) 2024 RSV [...] age to complete this topic Care Teams Street Light Servicer Relationship Specialty Start Date End Date Gladis Aguilar MD [address] [place] [address] , [address] [facility] D[facility]A: [facility] CATE Patel PCP - General 06/21/22
--- OUTSIDE RECORDS SUMMARY | 2024-12-26 16:51 | XMS_ITS | Clinical Summary ---
Author Organization [facility] Address [address] [place] [address] Care Team Providers Care Cargo Tank Mechanic Name Role Phone Medina Hall NP Primary Care Provider + [phone] Source Comments PLEASE NOTE, if this patient [...] 50 mcg/actuation nasal sprayIndication s:Sinusitis Place 1 Hurricane into the nostril(s) once daily. 16 g [...] Plan of Treatment Not on file Insurance [employer] Member Subscriber Plan / Payer ( fective 2013-Present) Name:Gricelda Vicky Relation to Subscriber:Self Name:Vicky Madison Payer ID:[id number] Group ID:Not on file Type:Indemnity Address: [address] [employer] Care Teams Cargo Tank Mechanic Relationship Specialty Start Date End Date Medina Hall NP PCP - General Family Medicine, [employer] TECH 02/08/13
== END 2024-12-26 14:31 | disposition home or self-care (01) ==
LOC: HO.HMCH 13:48
PROVIDERS: PCP Internal Medicine; Visit Provider Internal Medicine
DX: E11.9 Type 2 diabetes mellitus without complications (principal); I10 Essential (primary) hypertension; E03.9 Hypothyroidism, unspecified; M25.522 Pain in left elbow; M25.521 Pain in right elbow; M25.532 Pain in left wrist; M25.531 Pain in right wrist; M79.632 Pain in left forearm; M79.631 Pain in right forearm; Z13.9 Encounter for screening, unspecified

== ENCOUNTER 2024-12-26 13:47 | Outpatient (REF) | payer OTHER, SELFPAY ==
--- NOTE | ~2024-12-26 | XR_ITS ---
Exam: CR Xr Elbow Foreign Min 3v Technique: AP, lateral, and oblique views, bilateral elbow x-rays INDICATION: Elbow pain FINDINGS: Right elbow: There is no abnormal displacement of the fat pads. There is an absent radial head and neck. The proximal end of radius is expanded with multifocal lucencies in the proximal end and cortical thickening or distally. There is mild scalloping of the proximal anterior ulnar cortex from chronic pseudoarticulation with the radius. Left elbow: Absent radial head and neck is noted. There is mild expansion of the distal portion of the radius with increased lucency centrally but cortical thickening. Fat pads are not displaced. Degenerative fragmentation and osteophytes are noted the anterior tip of the coronoid process. XR/XR Elbow Foreign min 3V IMPRESSION: There is symmetrical deformity of both proximal radii with absent radial head and neck regions with central medullary lucency and cortical thickening. This could be related to fibrous dysplasia, Paget's disease, Madelung dyschondrosteosis, or other bone dysplasia. Electronically signed by: Hayes Lang MD 12/26/2024 04:47 PM [facility]
--- NOTE | ~2024-12-26 | XR_ITS ---
Exam: CR Xr Forearm Foreign 2v TECHNIQUE: AP and lateral views bilateral forearms History of forearm pain. Comparison right forearm 01/27/2019 Findings: RIGHT FOREARM: There is stable bowing of the radial diaphysis with cortical thickening. There is volar ulnar exaggerated tilt of the articular surface of distal radius. There is hypoplastic proximal radius The distal ulna appears expanded and enlarged with mild dorsal bowing. LEFT FOREARM: There is stable dorsal bowing of the radial diaphysis with a volar ulnar tilt of the distal radial articular surface and hypoplasia of the radial head and neck. There is cortical thickening and patchy lucency within the medullary space. The diaphysis and distal ulna also appears expanded with areas of cortical thickening. Degenerative osteophytes and fragmentation is noted the coronoid process tip. 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 Additionally, the ulna demonstrates expansion and mild bowing deformity raising question of underlying fibrous dysplasia. There is mild degenerative change of the left elbow joint. Electronically signed by: Hayes Lang MD 12/26/2024 04:58 PM EST
--- NOTE | ~2024-12-26 | XR_ITS ---
Exam: XR WRIST 3 OR MORE VIEWS BILATERAL, TECHNIQUE: Four views upper extremity joints, bilateral wrists INDICATION: M25.532 - Pain in left wrist COMPARISON: January 27, 2019 FINDINGS: RIGHT WRIST: There is ulnar volar deviation of the distal radial articular surface consistent with Madelung deformity. There is also irregularity of the radial diaphysis with mild expansion. There is also mild retention of the distal ulna. There is a shape deformity of the proximal carpal row. LEFT WRIST: There is ulnar volar deviation of the distal radial articular surface consistent with Madelung deformity. There is also irregularity of the radial diaphysis with mild expansion. There is also mild retention of the distal ulna. There is a shape deformity of the proximal carpal row. XR/XR Wrist Foreign min 3V IMPRESSION: Right wrist: Chronic Madelung deformity. See forearm dictation. Left wrist: Chronic Madelung deformity. See forearm dictation. Electronically signed by: Hayes Lang MD 12/26/2024 05:17 PM [facility]
== END 2024-12-26 13:48 | disposition home or self-care (01) ==
LOC: HO.XRAY 13:47
PROVIDERS: PCP Internal Medicine; Visit Provider Internal Medicine
DX: M79.632 Pain in left forearm (principal); M79.631 Pain in right forearm; M25.522 Pain in left elbow; M25.521 Pain in right elbow; M25.531 Pain in right wrist; M25.532 Pain in left wrist; E11.9 Type 2 diabetes mellitus without complications; I10 Essential (primary) hypertension; E03.9 Hypothyroidism, unspecified; Z79.890 Hormone replacement therapy; Z79.899 Other long term (current) drug therapy
CPT/HCPCS: 73080; 73090; 73110; 83036; 96127; 99212

== ENCOUNTER → 2024-12-26 14:44 | Outpatient (BNV) | payer OTHER, SELFPAY | PROVIDERS: PCP Internal Medicine; Visit Provider Radiology Diagnostic Radiology | DX: Q74.0 Other congenital malformations of upper limb(s), including shoulder girdle (principal); M19.022 Primary osteoarthritis, left elbow | CPT/HCPCS: 73080; 73090; 73110 ==

== ENCOUNTER 2025-01-15 10:16 | Outpatient (AMB) | payer OTHER, SELFPAY ==
[2025-01-15 10:20] VITALS: BP 150/76; PULSE 83; RESP 18; O2SAT 99; BMI 38.2
--- NOTE | 2025-01-15 10:20 | A.OFFPC_ITS ---
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 Accompanied by: Self / Same As Patient Allergies Seasonal Allergies Allergy (Mild, Verified 01/15/25 10:42) Itchy Eyes No Known Drug Allergies Allergy (Unknown, Verified 01/15/25 10:42) Unknown Medication List - Last Reconciled 01/15/25 by Gladis Aguilar MD acetaminophen 500 mg PO Q6H PRN atorvastatin 80 mg PO DAILY 90 days blood sugar diagnostic As directed blood sugar diagnostic (FreeStyle Lite Strips) As directed once per day blood-glucose meter (FreeStyle Lite Meter kit) As directed cholecalciferol (vitamin D3) 50 mcg PO DAILY 90 days ezetimibe 10 mg PO DAILY 90 days lancets As directed lancets (FreeStyle Lancets) As directed levothyroxine 125 mcg PO DAILY 90 days omeprazole 20 mg PO DAILY 90 days sitagliptin phos-metformin 50-1,000 mg ER 1 tab PO BID 30 days Tobacco use date assessed: 01/15/25 Dental Screening Dental Screen Date: 01/15/25 Did you have a dental visit in the last 12 months?: Yes Did you have a dental problem in the last 6 months where you did not have access to dental care?: No Was dental information given to patient?: Patient has dentist HPI HPI Comments History of Present Illness Details The patient is a 59 year old individual presenting for management of chronic conditions, evaluation of a breast lump, and arm pain. The patient has a painful lump in the right breast, localized to the 4 o'clock position. The patient denies any nipple discharge. She had a diagnostic mammogram and ultrasound of the right breast back in October of this year due to her symptoms. Patient was reassured that mammogram and ultrasound were going to be repeated 6 months after to evaluate the cyst. No nipple retraction. She will be refer to surgery for evaluation. 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 Will be referred to therapy. Was also referred to ortho but has not received a call yet. The patient has a history of type 2 diabetes mellitus, which is well-controlled with a last hemoglobin A1c of 6.2% in December. The patient's current medications include atorvastatin 80 mg, vitamin D, ezetimibe, levothyroxine 125 mcg, and Janumet. She has also been found to have elevated blood pressure over 140/90 in multiple occasions and I will start her on lisinopril. Blood pressure goal is equal or less than 130/80. [facility] Medical History (Updated 01/15/25 @ 10:54 by Gladis Aguilar MD) Morbid obesity with BMI of 40.0-44.9, adult Hypothyroidism Morbid obesity due to excess calories Essential hypertension Rash due to allergy Rash Rib pain Mixed hyperlipidemia Hypothyroidism Diabetes mellitus Surgical History S/P DUSTIN-BSO (total abdominal hysterectomy and bilateral salpingo-oophorectomy) Family History Father Cirrhosis History of ETOH abuse Mother Hypertension Family/Other Breast cancer Social History Housing: Apartment Alcohol intake: never Patient Tobacco Use Status: Never used Tobacco e-Cigarette/Vaping Use: Never Used Second Hand Smoke Exposure: No service: No Current occupational status: unemployed Cognitive needs: No Hearing needs: No Vision needs: No Questionnaire PHQ-9 Over the last 2 weeks, how often have you been bothered by any of the following problems? 1. Little interest or pleasure in doing things: not at all 2. Feeling down, depressed, or hopeless: not at all 3. Trouble falling or staying asleep, or sleeping too much: not at all 4. Feeling tired or having little energy: not at all 5. Poor appetite or overeating: not at all 6. Feeling bad about yourself - or that you are a failure or have let yourself or your family down: not at all 7. Trouble concentrating on things, such as reading the newspaper or watching television: not at all 8. Moving or speaking so slowly that other people could have noticed. Or the opposite - being so fidgety or restless that you have been moving around a lot more than usual: not at all 9. Thoughts that you would be better off or of hurting yourself in some way: not at all Total score: 0 Depression Screening Interpretation: Negative Depression Screening Done: Yes 67223 - PHQ-9 Billing: Yes Source: Developed by Drs. Ricky Lopez, Acacia Wild, Matias Lynch and colleagues, with an educational judah from [employer]. Thrive Questionnaire Date Thrive assessed: 01/15/25 I am a: Patient What is your living situation today?: I have a steady place to live Within the past 12 months, did the food you bought not last and you didn't have the money to get more?: Never true Within the past 12 months, did you worry whether your food would run out before you got money to buy more?: Never true Do you have trouble paying for medicines?: No Do you have trouble getting transportation to medical appointments?: No Do you have trouble paying your heating and electricity bill?: No Do you have trouble taking care of your child, family member or friend?: No Do you have trouble with day-to-day activities such as bathing, preparing meals, shopping, managing finances, etc.?: No Are you currently unemployed and looking for a job?: No Are you interested in more education?: No Please select the resources that you would like help with: None Currently or been in a relationship where the following occur: No concerns reported THRIVE Score: 0 AUDIT C Alcohol Use Questionnaire (AUDIT-C) 1. How often do you have a drink containing alcohol?: Never Total Score: 0 Score Reviewed/Action Taken: No BETINA-7 AMB Questionnaire BETINA-7 Date BETINA - 7 assessed: 01/15/25 Feeling nervous, anxious, or on edge: 0 = Not at all Not being able to stop or control worryin = Not at all Worrying too much about different things: 0 = Not at all Trouble relaxin = Not at all Being so restless that it is hard to sit still: 0 = Not at all Becoming easily annoyed or irritable: 0 = Not at all Feeling afraid as if something awful might happen: 0 = Not at all Total BETINA-7 score (0-4 normal; 5-9 mild; 10-14 moderate; 15-21 severe): 0 Source: Developed by Drs. Ricky Lopez, Acacia Wild, Matias Lynch and colleagues, with an educational judah from [employer]. BETINA-7 Assessment Billing BETINA-7 Assessment Tool: BETINA-7 Assessment 17324 Review of Systems Const All systems reviewed & are unremarkable except as noted in HPI and below Card Denies chest pain at rest, Denies chest pain with activity, Denies edema, Denies irregular heart rhythm, Denies claudication, Denies dyspnea, Denies dyspnea on exertion, Denies orthopnea, Denies paroxysmal nocturnal dyspnea and Denies slow heart rate Resp Denies cough, Denies dyspnea and Denies dyspnea on exertion GI Denies abdominal pain, Denies change in bowel habits, Denies excessive flatus, Denies nausea and Denies vomiting Physical exam (Primary Care) Vital Signs: Last Vital Signs Pulse 83 01/15/25 10:20 Resp 18 01/15/25 10:20 BP 150/76 H 01/15/25 10:20 Pulse Ox 99 01/15/25 10:20 Oxygen Delivery Method Room Air 01/15/25 10:20 BMI result Body Mass Index 38.2 BMI Assessment/Plan discussion: High BMI High, discussed plan: lifestyle, weight reduction, dietary and physical activity Tobacco/Smoking Status: Tobacco use Status Tobacco use date assessed 01/15/25 01/15/25 10:29 Patient Tobacco Use Status Never used Tobacco 01/15/25 10:29 Tobacco use type 10/26/22 13:36 e-Cigarette/Vaping Use Never Used 01/15/25 10:29 PHQ-9: PHQ-9 Score PHQ-9: Total score 0 01/15/25 10:47 Depression Screening Interpretation: Negative Thrive Assessment: Date of Thrive Assessment Date Thrive assessed 01/15/25 01/15/25 10:29 Currently or been in a relationship where the following occur: No concerns reported Resp Effort & Inspection: normal respiratory effort Auscultation: clear to auscultation bilaterally Cardio Jugular venous distension: no JVD Rate: regular rate Rhythm: regular rhythm Heart sounds: S1 normal heart sound present and S2 normal heart sound present Extrem General: Yes full ROM Coding Level of Care Code Complex visit Add On G2211 Diagnoses Cyst of right breast N60.01 Essential hypertension I10 Mixed hyperlipidemia E78.2 Type 2 diabetes mellitus without complication, without long-term current use of insulin E11.9 Diabetes mellitus type: type 2 Diabetes mellitus retirement insulin use: without retirement use Diabetes mellitus complication status: without complication Acquired hypothyroidism E03.9 Hypothyroidism type: acquired Additional Codes BETINA-7 Assessment Billing - BETINA-7 Assessment Tool: BETINA-7 Assessment 67509 ([id number]) PHQ-9 - 25645 - PHQ-9 Billing: Yes ([id number]) Time Spent (min) 23 Assessment & Plan Assessment & Plan (1) Cyst of right breast: Code(s): N60.01 - Solitary cyst of right breast Category: Medical (2) Essential hypertension: Code(s): I10 - Essential (primary) hypertension Category: Medical (3) Mixed hyperlipidemia: Code(s): E78.2 - Mixed hyperlipidemia Category: Medical (4) Diabetes mellitus: Code(s): E11.9 - Type 2 diabetes mellitus without complications Category: Medical Qualifiers: Diabetes mellitus type: type 2 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 Breast Lump The patient was evaluated for a painful lump in the breast at the 4 o'clock position, which does not appear concerning on physical exam. A referral will be placed to a surgeon for further evaluation. The patient is advised to undergo repeat testing in April to monitor the size of the lump. 2. Diabetes Mellitus, Type 2 The patient's diabetes is well-controlled with an HbA1c of 6.2% on a regimen including Janumet. Will add lisinopril for renal protection and blood pressure control. Follow-up labs will be ordered in 4 months. 3. Hypertension Lisinopril will be initiated for blood pressure control and renal protection. Blood pressure goal is equal or less than 130/80. 4. Hyperlipidemia Continue statins. LDL goal is less than 70. 5. Hypothyroidism Continue levothyroxine. The prescription was sent to the patient's pharmacy. 4. Hyperlipidemia Patient will continue the current regimen of atorvastatin 80 mg and ezetimibe. Plan to recheck labs in 4 months. 5. Hypothyroidism The patient will continue taking levothyroxine 125 mcg. Labs will be checked in 4 months. 6. Arm Pain And Deformity A topical cream will be prescribed for arm pain. The patient was advised to cancel an upcoming therapy appointment. Orders: Orders Microalbumin, Random (w Creat) 4 Months R80.9 - Proteinuria, unspecified Thyroid Stimulating Hormone 4 Months E03.9 - Hypothyroidism, unspecified Lipid Panel 4 Months E78.5 - Hyperlipidemia, unspecified Vitamin B12 and Folate 4 Months E53.8 - Deficiency of other specified B group vitamins Vitamin D 25-OH Total 4 Months E55.9 - Vitamin D deficiency, unspecified Comprehensive [place]. Panel Fast 4 Months I10 - Essential (primary) hypertension Referrals General Surgery Referral N60.01 - Solitary cyst of right breast Medications: New lisinopril 5 mg PO DAILY 90 tabs 1RF 90 days I10 - Essential (primary) hypertension diphenhydramine-zinc acetate 2-0.1 % (Benadryl Itch Cooling) 1 spray topical TID PRN 59 mL 0RF skin irritation 2 weeks Refilled levothyroxine 125 mcg PO DAILY 90 tabs 1RF 90 days sitagliptin phos-metformin 50-1,000 mg ER 1 tab PO BID 60 tabs 3RF 30 days E11.9 - Type 2 diabetes mellitus without complications
--- OUTSIDE RECORDS SUMMARY | 2025-01-15 11:41 | XMS_ITS | Clinical Summary ---
Author Organization [facility] ity Address [address] [place] [address] Care Team Providers Care Rn Production Name Role Phone Gladis Aguilar MD Primary Care Provider [phone] Social History Tobacco Use Types Packs/Day Years [...] age to complete this topic Care Teams Rn Production Relationship Specialty Start Date End Date Gladis Aguilar MD [address] [place] [address] , [address] [facility] D[facility]A: [facility] CATE Patel PCP - General 06/21/22
== END 2025-01-15 11:01 | disposition home or self-care (01) ==
LOC: HO.HMCH 10:16
PROVIDERS: PCP Internal Medicine; Visit Provider Internal Medicine
DX: N60.01 Solitary cyst of right breast (principal); I10 Essential (primary) hypertension; E78.2 Mixed hyperlipidemia; E11.9 Type 2 diabetes mellitus without complications; E03.9 Hypothyroidism, unspecified

== ENCOUNTER → 2025-01-15 10:16 | Outpatient (BNVA) | payer OTHER, SELFPAY | PROVIDERS: PCP Internal Medicine; Visit Provider Internal Medicine | DX: N60.01 Solitary cyst of right breast (principal); I10 Essential (primary) hypertension; E78.2 Mixed hyperlipidemia; E11.9 Type 2 diabetes mellitus without complications; E03.9 Hypothyroidism, unspecified | CPT/HCPCS: 96127; 99212 ==